=== PATIENT | male | born 1945 | race Caucasian/White ===

== ENCOUNTER 2016-11-07 20:45 | Emergency (ER) | payer MEDICARE, OTHER ==
[2016-11-07 20:55] VITALS: BP 157/76
--- NOTE | 2016-11-08 00:42 | UC ---
Michael Maradiaga Adam, scribed for Tahmina Arriaga DO on 11/07/16 at 2227 . Lower Extremity/Ankle HPI - HPI Summary HPI Summary: Pt is a 71 year old male presenting with concerns about a bruise on his LLE. He states that a heavy log landed on the leg about 1 week ago and he has since developed a large black bruise on his left thigh near his groin. The bruised area is not painful. The pt states that he rarely bruises which is why he is concerned. He also reports an abrasion in the area of the bruise. Pt denies CP, SOB, MORENO, rashes, N/V/D, abdominal pain, rashes, fever, chills, and any other symptoms. PMHx of HTN and A Fib (on Metoprolol). Surgical Hx of multiple back and knee operations. Former tobacco use. FMHx of HTN. - History of Current Complaint Chief Complaint: UCGeneralIllness Stated Complaint: BRUISE ON LEG Hx Obtained From: Patient Onset/Duration: Gradual Onset, Lasting Days, Still Present Severity Initially: Mild Severity Currently: Moderate Aggravating Factor(s): Nothing Alleviating Factor(s): Nothing Able to Bear Weight: Yes - Risk Factors DVT Risk Factors: Negative - Allergies/Home Medications Allergies/Adverse Reactions: Allergies Allergy/AdvReac Type Severity Reaction Status Date / Time Ibuprofen Allergy Intermediate Hives/Diff.Breathing/Itching, Verified 11/07/16 20:56 Weakness Home Medications: Home Medications Cyclobenzaprine TAB* [Flexeril TAB*] 10 mg PO BID PRN 11/07/16 [History Confirmed 11/07/16] Metoprolol Tartrate TAB* [Lopressor TAB*] 25 mg PO DAILY 11/07/16 [History Confirmed 11/07/16] traMADol TAB* [Ultram*] 50 mg PO Q6HR PRN 11/07/16 [History Confirmed 11/07/16] PMH/Surg Hx/FS Hx/Imm Hx Endocrine History Of: Denies: Diabetes, Thyroid Disease Cardiovascular History Of: Reports: Hypertension - ON MEDS, Atrial Fibrillation Denies: Pacemaker/ICD Comment Only: Cardiac Disorders - YES, A-FIB Respiratory History Of: Denies: COPD, Asthma GI/ History Of: Denies: Gastroesophageal Reflux, Renal Disease Neurological History Of: Denies: CVA, Dementia, Seizures - Surgical History Surgical History: Yes Surgery Procedure, Year, and Place: 1949 TONSILLECTOMY, [facility]. 1973 LEFT RETINAL DETATCHEMENT REPAIR, [facility]. 1979 RIGHT INGUINAL HERNIA REPAIR, [place]. 1997 BACK FUSION, [facility]. 1999 [place] [facility] [place] Surgery 2012 [facility]. 2003 LEFT [place] [facility] [place], [place]. 2010 DORSAL COLUMN STIMULATOR INSERTION,. 06/2012 LEFT KNEE TOTAL REPLACEMENT, [place]. RIGHT SHOULDER SURGERY REVISION 12/2013 - Family History Known Family History: Positive: Hypertension, Other - Negative malignant hyperthermia, negative anesthesia reaction - Social History Occupation: Retired Lives: With Family - Alcohol Use: None Substance Use Type: None Smoking Status (MU): Former Smoker Have You Smoked in the Last Year: No - Immunization History Most Recent Influenza Vaccination: not this year Review of Systems Constitutional: Negative Skin: Bruising - LLE, Other - Abrasion in LLE Eyes: Negative ENT: Negative Respiratory: Negative Cardiovascular: Negative Gastrointestinal: Negative Genitourinary: Negative Motor: Negative Neurovascular: Negative Musculoskeletal: Negative Neurological: Negative Psychological: Negative All Other Systems Reviewed And Are Negative: Yes Physical Exam Triage Information Reviewed: Yes Appearance: Well-Appearing, No Pain Distress, Well-Nourished Vital Signs: Initial Vital Signs Temp 97.9 F 11/07/16 20:50 Pulse 63 11/07/16 20:50 Resp 16 11/07/16 20:50 BP 157/76 11/07/16 20:50 Pulse Ox 97 11/07/16 20:50 Vital Signs Reviewed: Yes Eyes: Positive: Conjunctiva Clear. Negative: Discharge ENT: Positive: Hearing grossly normal. Negative: Muffled/hoarse voice Neck exam: Normal Neck: Positive: Supple Respiratory: Positive: Lungs clear, Normal breath sounds, No respiratory distress, No accessory muscle use Cardiovascular: Positive: RRR, No Murmur Musculoskeletal Exam: Normal Neurological: Positive: Alert, Muscle Tone Normal Psychological Exam: Normal Psychological: Positive: Age Appropriate Behavior Skin: Positive: Other - 10 cm evolving hematoma distal to mild abrasion to left thigh Lower Extremity Course/Dx - Differential Dx/Diagnosis Differential Diagnosis/HQI/PQRI: Cellulitis, Contusion Provider Diagnoses: Hematoma, abrasion Discharge - Discharge Plan Condition: Stable Disposition: HOME Patient Education Materials: Abrasion (ED), Hematoma (ED) Referrals: Olivia Olvera MD [Primary Care Provider] - If Needed The documentation as recorded by the Michael quiñones Adam accurately reflects the service I personally performed and the decisions made by me, Tahmina Arriaga DO.
== END 2016-11-07 22:54 | disposition home or self-care (01) ==
LOC: UCEAST 20:45
DX: S70.12XA Contusion of left thigh, initial encounter (principal); S70.312A Abrasion, left thigh, initial encounter; W20.8XXA Other cause of strike by thrown, projected or falling object, initial encounter; Y93.89 Activity, other specified; Y92.9 Unspecified place or not applicable; I10 Essential (primary) hypertension; I48.91 Unspecified atrial fibrillation; Z88.6 Allergy status to analgesic agent; Z96.652 Presence of left artificial knee joint; Z87.891 Personal history of nicotine dependence
CPT/HCPCS: 99211; G0463

== ENCOUNTER 2017-05-04 14:55 | Emergency (ER) | payer MEDICARE, OTHER ==
[2017-05-04] MEDS ORDERED: NS 0.9% 1000 ML* 1,000 ML IV ONE (15:41)
[2017-05-04 15:49] LABS: Hematocrit 45 % (42-52); Mean Corpuscular HGB Conc 33 g/dl (31-36); Mean Corpuscular Hemoglobin 31 pg (27-31); Mean Corpuscular Volume 92 fL (80-94); Mean Platelet Volume 10 um3 (7.4-10.4); Red Cell Distribution Width 15 % (10.5-15); White Blood Count 5.9 10^3/ul (3.5-10.8)
[2017-05-04 16:05] LABS: Albumin 4.2 g/dL (3.2-5.2); BUN/Creatinine Ratio 16.4 (8-20); C Reactive Protein 1.12 mg/L (< 5.00); Calcium 9.6 mg/dL (8.6-10.3); EGFR African American 75.5 (>60); EGFR Non-African American 58.7 (>60); Globulin 2.8 g/dL (2-4); Magnesium 2.2 mg/dL (1.9-2.7); Potassium 4.1 mmol/L (3.5-5.0); Total Bilirubin 0.6 mg/dL (0.2-1.0)
[2017-05-04 16:06] LABS: Troponin I 0.01 ng/mL (<0.04)
--- NOTE | 2017-05-04 16:22 | RAD ---
INDICATION: Weakness. Palpitations. COMPARISON: July 02, 2014 TECHNIQUE: An AP portable view obtained at 1545 hours is submitted. FINDINGS: Bones/Soft Tissues: There are no acute bony findings. Cardiomediastinal: The cardiomediastinal silhouette is normal. Lungs: There are no infiltrates. Pleura: There are no pleural effusions. Other: None IMPRESSION: NORMAL CHEST.
[2017-05-04 17:42] LABS: TSH (Thyroid Stimulating Horm) 2.01 mcIU/mL (0.34-5.60)
[2017-05-04 18:15] VITALS: BP 165/71
--- NOTE | 2017-05-04 18:41 | ED ---
Jocelyn Maradiaga Edward, scribed for Kavon Bills MD on 05/04/17 at 1511 . Palpitations / Dysrhythmia - HPI Summary HPI Summary: 71 y/o male presents to ED c/o sudden onset slow HR and skipped beats - missing two or three beats at a time, per pt. The patient first noticed the sx at 12:30 today after a nap. The palpitations and slow HR were accompanied with fatigue and weakness. Past medications reviewed on visit. Pt states no dose change in medication. Associated sx: chronic lightheadedness, dizziness and blurred vision. Denies pedal edema, ABD pain, CP, SOB. PMHx DM, CAD, HTN, pericarditis, no NV's. Pt had a stress test done abut a a year ago. - History of Current Complaint Chief Complaint: EDDysrhythmPalp Time Seen by Provider: 05/04/17 15:09 Hx Obtained From: Patient Onset/Duration: Sudden Onset, Lasting Hours - 12:30 today Character: Slow, Skipped Beats - Allergy/Home Medications Allergies/Adverse Reactions: Allergies Allergy/AdvReac Type Severity Reaction Status Date / Time Ibuprofen Allergy Intermediate Hives/Diff.Breathing/Itching, Verified 01/02/17 14:36 Weakness PMH/Surg Hx/FS Hx/Imm Hx Previously Healthy: No Endocrine/Hematology History: Reports: Hx Anticoagulant Therapy Denies: Hx Diabetes, Hx Thyroid Disease Cardiovascular History: Reports: Hx Coronary Artery Disease - CHOLESTEROL CONTROL WITH MEDS, Hx Hypercholesterolemia, Hx Hypertension - ON MEDS Denies: Hx Pacemaker/ICD Respiratory History: Denies: Hx Asthma, Hx Chronic Obstructive Pulmonary Disease (COPD) GI History: Reports: Hx Gastroesophageal Reflux Disease Denies: Other GI Disorders History: Denies: Hx Renal Disease Musculoskeletal History: Reports: Hx Arthritis, Hx Back Problems, Hx Tendonitis - LEFT SHOULDER, Other Musculoskeletal History - OSTEOARTHROSIS RIGHT SHOULDER, Sensory History: Reports: Hx Contacts or Glasses - READING GLASSES Denies: Hx Hearing Aid Opthamlomology History: Reports: Hx Contacts or Glasses - READING GLASSES Neurological History: Denies: Hx Dementia, Hx Seizures Psychiatric History: Denies: Hx Substance Abuse - Surgical History Surgery Procedure, Year, and Place: 1949 TONSILLECTOMY, [facility]. 1973 LEFT RETINAL DETATCHEMENT REPAIR, [facility]. 1979 RIGHT INGUINAL HERNIA REPAIR, [place]. 1997 BACK FUSION, [facility]. 1999 RIGHT SHOULDER SURGERY , [facility] [place]; Left Shoulder Surgery 2012 [facility]. 2003 LEFT KNEE ARTHROSCOPIC SURGERY, [facility] [place]. 2006 BACK SURGERY, [place]. 2010 DORSAL COLUMN STIMULATOR INSERTION,. 06/2012 LEFT KNEE TOTAL REPLACEMENT, [place]. RIGHT SHOULDER SURGERY REVISION 12/2013 Hx Anesthesia Reactions: No - DORSAL COLUMN STIMULATOR Infectious Disease History: Denies: Hx Hepatitis, Hx Human Immunodeficiency Virus (HIV), Hx of Known/ Suspected MRSA, Traveled Outside the [place] in Last 30 Days - Family History Known Family History: Positive: Hypertension, Other - Negative malignant hyperthermia, negative anesthesia reaction - Social History Alcohol Use: None Hx Substance Use: No Substance Use Type: Reports: None Hx Tobacco Use: Yes Smoking Status (MU): Former Smoker Have You Smoked in the Last Year: No Review of Systems Positive: Fatigue Eyes: Negative ENT: Negative Positive: Palpitations - Slow Respiratory: Negative Gastrointestinal: Negative Genitourinary: Negative Musculoskeletal: Negative Skin: Negative Neurological: Negative Psychological: Normal All Other Systems Reviewed And Are Negative: Yes Physical Exam Triage Information Reviewed: Yes Vital Signs On Initial Exam: Initial Vitals Temp Pulse Resp BP Pulse Ox 98.2 F 52 18 140/63 99 05/04/17 14:55 05/04/17 14:55 05/04/17 14:55 05/04/17 14:55 05/04/17 14:55 Vital Signs Reviewed: Yes Appearance: Positive: Well-Appearing, No Pain Distress Skin: Positive: Warm, Skin Color Reflects Adequate Perfusion, Dry Head/Face: Positive: Normal Head/Face Inspection Eyes: Positive: EOMI, JASIEL ENT: Positive: Normal ENT inspection Neck: Positive: Supple, Nontender Respiratory/Lung Sounds: Positive: Clear to Auscultation, Breath Sounds Present Cardiovascular: Positive: Other - Regular rhythm with occasional irregular beats Abdomen Description: Positive: Nontender, Soft Bowel Sounds: Positive: Present Musculoskeletal: Positive: Normal, Strength/ROM Intact Neurological: Positive: Normal, Sensory/Motor Intact, Alert, Oriented to Person Place, Time Psychiatric: Positive: Normal, Affect/Mood Appropriate Diagnostics - Vital Signs Vital Signs Temp Pulse Resp BP Pulse Ox 05/04/17 14:55 98.2 F 52 18 140/63 99 - Laboratory Lab Results: Lab Results 08/20/17 08/20/17 08/20/17 Range/Units 15:41 15:41 15:41 WBC 5.9 (3.5-10.8) 10^3/ul RBC 4.90 (4.0-5.4) 10^6/ul Hgb 15.0 (14.0-18.0) g/dl Hct 45 (42-52) % MCV 92 (80-94) fL MCH 31 (27-31) pg MCHC 33 (31-36) g/dl RDW 15 (10.5-15) % Plt Count 156 (150-450) 10^3/ul MPV 10 (7.4-10.4) um3 Neut % (Auto) 62.7 (38-83) % Lymph % (Auto) 22.2 L (25-47) % [place] % (Auto) 9.3 H (1-9) % Eos % (Auto) 2.7 (0-6) % Baso % (Auto) 3.1 H (0-2) % Absolute Neuts (auto) 3.7 (1.5-7.7) 10^3/ul Absolute Lymphs (auto) 1.3 (1.0-4.8) 10^3/ul Absolute Monos (auto) 0.5 (0-0.8) 10^3/ul Absolute Eos (auto) 0.2 (0-0.6) 10^3/ul Absolute Basos (auto) 0.2 (0-0.2) 10^3/ul Absolute Nucleated RBC 0 10^3/ul Nucleated RBC % 0 INR (Anticoag Therapy) 0.86 L (0.89-1.11) APTT 30.6 (26.0-36.3) seconds D-Dimer, Quantitative < 200 (Less Than 230) ng/mL Sodium 137 (133-145) mmol/L Potassium 4.1 (3.5-5.0) mmol/L Chloride 106 (101-111) mmol/L Carbon Dioxide 25 (22-32) mmol/L Anion Gap 6 (2-11) mmol/L BUN 20 (6-24) mg/dL Creatinine 1.22 H (0.67-1.17) mg/dL Est GFR ( Amer) 75.5 (>60) Est GFR (Non-Af Amer) 58.7 (>60) BUN/Creatinine Ratio 16.4 (8-20) Glucose 91 (70-100) mg/dL Lactic Acid (0.5-2.0) mmol/L Calcium 9.6 (8.6-10.3) mg/dL Magnesium 2.2 (1.9-2.7) mg/dL Total Bilirubin 0.60 (0.2-1.0) mg/dL AST 16 (13-39) U/L ALT 15 (7-52) U/L Alkaline Phosphatase 64 (34-104) U/L Total Creatine Kinase 49 (10-223) U/L CK-MB (CK-2) 2.6 (0.6-6.3) ng/mL Troponin I 0.01 (<0.04) ng/mL C-Reactive Protein 1.12 (< 5.00) mg/L B-Natriuretic Peptide ( - 100) pg/mL Total Protein 7.0 (6.4-8.9) g/dL Albumin 4.2 (3.2-5.2) g/dL Globulin 2.8 (2-4) g/dL Albumin/Globulin Ratio 1.5 (1-3) Lipase 41 (11.0-82.0) U/L TSH 2.01 (0.34-5.60) mcIU/mL 05/04/17 05/04/17 Range/Units 15:41 15:41 WBC (3.5-10.8) 10^3/ul RBC (4.0-5.4) 10^6/ul Hgb (14.0-18.0) g/dl Hct (42-52) % MCV (80-94) fL MCH (27-31) pg MCHC (31-36) g/dl RDW (10.5-15) % Plt Count (150-450) 10^3/ul MPV (7.4-10.4) um3 Neut % (Auto) (38-83) % Lymph % (Auto) (25-47) % [place] % (Auto) (1-9) % Eos % (Auto) (0-6) % Baso % (Auto) (0-2) % Absolute Neuts (auto) (1.5-7.7) 10^3/ul Absolute Lymphs (auto) (1.0-4.8) 10^3/ul Absolute Monos (auto) (0-0.8) 10^3/ul Absolute Eos (auto) (0-0.6) 10^3/ul Absolute Basos (auto) (0-0.2) 10^3/ul Absolute Nucleated RBC 10^3/ul Nucleated RBC % INR (Anticoag Therapy) (0.89-1.11) APTT (26.0-36.3) seconds D-Dimer, Quantitative (Less Than 230) ng/mL Sodium (133-145) mmol/L Potassium (3.5-5.0) mmol/L Chloride (101-111) mmol/L Carbon Dioxide (22-32) mmol/L Anion Gap (2-11) mmol/L BUN (6-24) mg/dL Creatinine (0.67-1.17) mg/dL Est GFR ( Amer) (>60) Est GFR (Non-Af Amer) (>60) BUN/Creatinine Ratio (8-20) Glucose (70-100) mg/dL Lactic Acid 0.9 (0.5-2.0) mmol/L Calcium (8.6-10.3) mg/dL Magnesium (1.9-2.7) mg/dL Total Bilirubin (0.2-1.0) mg/dL AST (13-39) U/L ALT (7-52) U/L Alkaline Phosphatase (34-104) U/L Total Creatine Kinase (10-223) U/L CK-MB (CK-2) (0.6-6.3) ng/mL Troponin I (<0.04) ng/mL C-Reactive Protein (< 5.00) mg/L B-Natriuretic Peptide 70 ( - 100) pg/mL Total Protein (6.4-8.9) g/dL Albumin (3.2-5.2) g/dL Globulin (2-4) g/dL Albumin/Globulin Ratio (1-3) Lipase (11.0-82.0) U/L TSH (0.34-5.60) mcIU/mL Result Diagrams: 05/04/17 15:41 05/04/17 15:41 Lab Statement: Any lab studies that have been ordered have been reviewed, and results considered in the medical decision making process. - Radiology CXR Xray Interpretation: No Acute Changes - Normal chest Radiology Interpretation Completed By: Radiologist - EKG 1 EKG Rhythm: Sinus Bradycardia - 69 bpm Ectopy: PVCs EKG Interpretation: Mobitz Type I 2 EKG Rhythm: Sinus Bradycardia - @ [address] Segment: Normal Ectopy: PVCs EKG Interpretation: 18:15 Re-Evaluation - Re-Evaluation 1 Re-Evaluation Time: 18:10 Comment: Reviewed CXR and EKG. Course/Dx - Course Course Of Treatment: DISCUSSED WITH DR PEOPLES. PATIENT FEELS WELL IN ED. HE AMBULATED AND FELT WELL. NO CHEST PAIN/SOB/LIGHTHEADEDNESS. HE WILL F/U WITH PMD TOMORROW AND CARDIOLOGY. HE UNDERSTAND TO RETURN TO ED IF WORSE. - Diagnoses Provider Diagnoses: Bradycardia, PVC (premature ventricular contraction) - Physician Notifications Discussed Care Of Patient With: Marlen Peoples Time Discussed With Above Provider: 15:46 Discharge - Discharge Plan Condition: Stable Disposition: HOME Patient Education Materials: Bradycardia (ED), Palpitations (ED) Referrals: Ledy Gallardo MD [Primary Care Provider] - Marlen Peoples MD [Medical Doctor] - [facility] [Provider Group] Additional Instructions: FOLLOW UP WITH YOUR PRIMARY CARE DOCTOR TOMORROW SCHEDULED AND CARDIOLOGY. RETURN TO THE EMERGENCY DEPARTMENT FOR ANY WORSENING OF YOUR CONDITION; CHEST PAIN, SHORTNESS OF BREATH, YOU FEEL LIKE PASSING OUT, YOU FEEL ILL OR QUESTIONS OR CONCERNS. The documentation as recorded by the Jocelyn quiñones Edward accurately reflects the service I personally performed and the decisions made by me, Kavon Bills MD.
== END 2017-05-04 20:53 | disposition home or self-care (01) ==
LOC: ED 14:55
DX: R00.2 Palpitations (principal); Z87.891 Personal history of nicotine dependence
CPT/HCPCS: 36415; 71010; 80053; 82550; 82553; 83605; 83690; 83735; 83880; 84443; 84484; 85025; 85379; 85610; 85730; 86140; 86618; 93005; 99284

== ENCOUNTER 2017-05-18 15:06 | Emergency (ER) | payer MEDICARE, OTHER ==
[2017-05-18 15:26] VITALS: BP 155/91
--- NOTE | 2017-05-18 16:13 | UC ---
INadine Emily, scribed for Carrillo Pisano MD on 05/18/17 at 1526 . General HPI - HPI Summary HPI Summary: This patient is a 71 year old M presenting to [facility] s/p fall 1230 today. He fell backwards from a truck. He states I am punchy and not thinking right. The patient rates the pain 6/10 in severity. Symptoms aggravated by nothing. Symptoms alleviated by nothing. Patient reports head trauma, and frontal headache (felt like my eyes popped out when I fell). Patient denies LOC, slurred speech, aphasia, extremity pain, weakness, N/V, biting tongue, urinary incontinency, and CP. PMHx includes DMII, A-Fib. Medications reviewed. Allergies reviewed. - History of Current Complaint Chief Complaint: UCHeadInjury Stated Complaint: FELL INJURE HEAD Time Seen by Provider: 05/18/17 15:17 Hx Obtained From: Patient Onset/Duration: Sudden Onset, Lasting Hours, Still Present Timing: Constant Onset Severity: Moderate Current Severity: Moderate Aggravating: Nothing Alleviating: Nothing Associated Signs & Symptoms: Positive: Other - head trauma, and frontal headache (felt like my eyes popped out when I fell). Patient denies LOC, slurred speech, aphasia, extremity pain, weakness, N/V, biting tongue, urinary incontinency, and CP. - Allergy/Home Medications Allergies/Adverse Reactions: Allergies Allergy/AdvReac Type Severity Reaction Status Date / Time Ibuprofen Allergy Intermediate Hives/Diff.Breathing/Itching, Verified 01/02/17 14:36 Weakness Home Medications: Home Medications Empagliflozin-Metformin HCl [Synjardy 5-500 mg] 1 tab PO 05/18/17 [History] PMH/Surg Hx/FS Hx/Imm Hx Endocrine History: Diabetes Cardiovascular History: Atrial Fibrillation Other History Of: Anticoagulant Therapy - Surgical History Surgical History: Yes Surgery Procedure, Year, and Place: 1950 TONSILLECTOMY, [facility]. 1973 LEFT RETINAL DETATCHEMENT REPAIR, [facility]. 1979 RIGHT INGUINAL HERNIA REPAIR, [place]. 1997 BACK FUSION, [facility]. 1999 [place] , [facility] [place] Surgery 2012 [facility]. 2003 LEFT KNEE ARTHROSCOPIC SURGERY, [facility] [place]. 2006 BACK SURGERY, [place]. 2010 DORSAL COLUMN STIMULATOR INSERTION,. 06/2012 LEFT KNEE TOTAL REPLACEMENT, [place]. RIGHT SHOULDER SURGERY REVISION 12/2013 - Family History Known Family History: Positive: Hypertension, Other - Negative malignant hyperthermia, negative anesthesia reaction - Social History Alcohol Use: None Substance Use Type: None Smoking Status (MU): Former Smoker Have You Smoked in the Last Year: No - Immunization History Most Recent Influenza Vaccination: not this year Review of Systems Cardiovascular: Other - Negative CP Gastrointestinal: Other - Negative N/V Genitourinary: Other - Negative urinary incontinency Musculoskeletal: Other: - Fell, head trauma, Neurological: Headache, Other - Negative denies LOC, slurred speech, aphasia, extremity pain, weakness, biting tongue. All Other Systems Reviewed And Are Negative: Yes Physical Exam Triage Information Reviewed: Yes Vital Signs: Initial Vital Signs Temp 98.2 F 05/18/17 15:21 Pulse 73 05/18/17 15:21 Resp 18 05/18/17 15:21 BP 155/91 05/18/17 15:21 Pulse Ox 100 05/18/17 15:21 Vital Signs Reviewed: Yes - Additional Comments The patient is well-nourished in no acute distress and in no acute pain. The skin is warm and dry and skin color reflects adequate perfusion. HEENT: The head is normocephalic and atraumatic. The pupils are equal and reactive. EOMI. The conjunctivae are clear and without drainage. Nares are patent and without drainage. Mouth reveals moist mucous membranes and the throat is without erythema and exudate. The external ears are intact. The ear canals are patent and without drainage. The tympanic membranes are intact. No hemo tympanum. No facial trauma evidence Neck is supple with full range of motion and non-tender. There are no carotid bruits. There is no neck vein distension. Respiratory: Chest is non-tender. Lungs are clear to auscultation and breath sounds are symmetrical and equal. Cardiovascular: Heart is bradycardic. There is no murmur or rub auscultated. There is no peripheral edema and pulses are symmetrical and equal. Abdomen: The abdomen is soft and non-tender. There are normal bowel sounds heard in all four quadrants and there is no organomegaly palpated. Musculoskeletal: There is no back pain noted. Extremities are non-tender with full range of motion. There is good capillary refill. There is no peripheral edema or calf tenderness elicited. No reproducible hip, neck, t spine, and l spine tenderness. Neurological: Patient is alert and oriented to person, place and time. The patient has symmetrical motor strength in all four extremities. Cranial nerves are grossly intact. Deep tendon reflexes are symmetrical and equal in all four extremities. No focal weakness noted. Speech is appropriate. No facial droop. Psychiatric: The patient has an appropriate affect and does not exhibit any anxiety or depression. Diagnostics - EKG Cardiac Rate: Bradycardia - BPM 58 Cardiac Rhythm: Sinus: Normal - 0309. PVCs, normal axis, no STEMI. Course/Dx - Course Course Of Treatment: This patient is a 71 year old M presenting to [facility] s/p fall 1230 today. He fell backwards from a truck. He states I am punchy and not thinking right. The patient rates the pain 6/10 in severity. Symptoms aggravated by nothing. Symptoms alleviated by nothing. Patient reports head trauma, and frontal headache (felt like my eyes popped out when I fell). Patient denies LOC, slurred speech, aphasia, extremity pain, weakness, N/V, biting tongue, urinary incontinency, and CP. PMHx includes DMII, A-Fib. Medications reviewed. Allergies reviewed. EKG reveals sinus bradycardia and PVCs. Patient will be discharged with instructions to present immediately to the emergency department. The patient is agreeable with this plan. - Differential Dx - Multi-Symptom Differential Diagnoses: Closed Cranial Trauma Provider Diagnoses: HEAD TRAUMA. Discharge - Discharge Plan Condition: Stable Disposition: [facility] Discharge Disposition Comment: [facility] Patient Education Materials: Head Injury (ED) Referrals: Ledy Gallardo MD [Primary Care Provider] - Additional Instructions: GO IMMEDIATELY TO THE EMERGENCY DEPARTMENT WITHOUT STOPPING FOR A BRAIN CT. FOLLOW UP WITH YOUR PRIMARY CARE PROVIDER WITHIN ONE WEEK FOR HIGH BLOOD PRESSURE NOTED TODAY. The documentation as recorded by the Nadine quiñones Emily accurately reflects the service I personally performed and the decisions made by me, Carrillo Pisano MD.
== END 2017-05-18 15:40 | disposition short-term general hospital (02) ==
LOC: UCEAST 15:06
DX: S09.90XA Unspecified injury of head, initial encounter (principal); V89.9XXA Person injured in unspecified vehicle accident, initial encounter; Y93.9 Activity, unspecified; Y92.9 Unspecified place or not applicable; R51 Headache; Z88.6 Allergy status to analgesic agent; E11.9 Type 2 diabetes mellitus without complications; Z79.84 Long term (current) use of oral hypoglycemic drugs; I48.91 Unspecified atrial fibrillation; Z79.01 Long term (current) use of anticoagulants; Z96.652 Presence of left artificial knee joint; Z87.891 Personal history of nicotine dependence
CPT/HCPCS: 93005; 99211; G0463

== ENCOUNTER 2017-05-18 15:58 | Emergency (ER) | payer MEDICARE, OTHER ==
[2017-05-18 16:22] VITALS: BP 167/81
--- NOTE | 2017-05-18 16:45 | RAD ---
INDICATION: Head injury. COMPARISON: Comparison is made with a prior CT of the brain from January 28, 2007. TECHNIQUE: Contiguous axial sections of the brain were obtained from the skull base to the vertex without contrast. FINDINGS: The ventricles, cisterns and sulci are enlarged consistent with diffuse atrophy. No significant focal abnormality or mass effect is seen. There is no evidence for hemorrhage. No significant focal osseous abnormality is seen. The visualized portion of the paranasal sinuses and mastoid air cells appear clear. IMPRESSION: NO EVIDENCE FOR ACUTE INTRACRANIAL ABNORMALITY.
--- NOTE | 2017-05-18 17:06 | ED ---
Jocelyn Maradiaga Edward, scribed for LydiakayCarineJaime on 05/18/17 at 1623 . Head Injury - HPI Summary HPI Summary: 71 y/o male presents to the ED sent from [facility] c/o MORENO s/p head injury today at 12 :30. The MORENO is rated 4/10 in severity, not aggravated or alleviated by anything. The MORENO is located behind his bilateral eyes, per triage note. Pt fell off his truck and hit his posterior head. Associated sx: chronic lower back pain. Denies neck pain, CP, SOB. No LOC. - History Of Current Complaint Chief Complaint: EDHeadInjury Stated Complaint: HEAD INJURY/NEEDS CT-SENT FROM Hx Obtained From: Patient Mechanism Of Injury: Fall From Height Of: - Truck Onset/Duration: Started Hours Ago Severity Initially: Moderate Pain Intensity: 4 Pain Scale Used: 0-10 Numeric Location: Discrete At: - Posterior head Associated Signs And Symptoms: Headache - Allergies/Home Medications Allergies/Adverse Reactions: Allergies Allergy/AdvReac Type Severity Reaction Status Date / Time Ibuprofen Allergy Intermediate Hives/Diff.Breathing/Itching, Verified 01/02/17 14:36 Weakness PMH/Surg Hx/FS Hx/Imm Hx Previously Healthy: No Endocrine/Hematology History: Reports: Hx Anticoagulant Therapy, Hx Diabetes - type 2 Denies: Hx Thyroid Disease Cardiovascular History: Reports: Hx Coronary Artery Disease - CHOLESTEROL CONTROL WITH MEDS, Hx Hypercholesterolemia, Hx Hypertension - ON MEDS Denies: Hx Pacemaker/ICD Respiratory History: Denies: Hx Asthma, Hx Chronic Obstructive Pulmonary Disease (COPD) GI History: Reports: Hx Gastroesophageal Reflux Disease Denies: Other GI Disorders History: Denies: Hx Renal Disease Musculoskeletal History: Reports: Hx Arthritis, Hx Back Problems, Hx Tendonitis - LEFT SHOULDER, Other Musculoskeletal History - OSTEOARTHROSIS RIGHT SHOULDER, Sensory History: Reports: Hx Contacts or Glasses - READING GLASSES Denies: Hx Hearing Aid Opthamlomology History: Reports: Hx Contacts or Glasses - READING GLASSES Neurological History: Denies: Hx Dementia, Hx Seizures Psychiatric History: Denies: Hx Substance Abuse - Surgical History Surgery Procedure, Year, and Place: 1949 TONSILLECTOMY, [facility]. 1973 LEFT RETINAL DETATCHEMENT REPAIR, [facility]. 1979 RIGHT INGUINAL HERNIA REPAIR, [place]. 1997 BACK FUSION, [facility]. 1999 RIGHT SHOULDER SURGERY , [facility] [place]; Left Shoulder Surgery 2012 [facility]. 2003 LEFT KNEE ARTHROSCOPIC SURGERY, [facility] [place]. 2006 BACK SURGERY, [place]. 2010 DORSAL COLUMN STIMULATOR INSERTION,. 06/2012 LEFT KNEE TOTAL REPLACEMENT, [place]. RIGHT SHOULDER SURGERY REVISION 12/2013 Hx Anesthesia Reactions: No - DORSAL COLUMN STIMULATOR Infectious Disease History: No Infectious Disease History: Denies: Hx Hepatitis, Hx Human Immunodeficiency Virus (HIV), Hx of Known/ Suspected MRSA, Traveled Outside the [place] in Last 30 Days - Family History Known Family History: Positive: Hypertension, Other - Negative malignant hyperthermia, negative anesthesia reaction - Social History Alcohol Use: None Hx Substance Use: No Substance Use Type: Reports: None Hx Tobacco Use: Yes Smoking Status (MU): Former Smoker Have You Smoked in the Last Year: No Review of Systems Constitutional: Negative Eyes: Negative ENT: Negative Cardiovascular: Negative Respiratory: Negative Gastrointestinal: Negative Genitourinary: Negative Musculoskeletal: Negative Skin: Negative Positive: Headache Psychological: Normal All Other Systems Reviewed And Are Negative: Yes Physical Exam Triage Information Reviewed: Yes Vital Signs On Initial Exam: Initial Vitals Temp Pulse Resp BP Pulse Ox 97.2 F 57 16 169/71 100 05/18/17 16:05 05/18/17 16:05 05/18/17 16:05 05/18/17 16:05 05/18/17 16:05 Vital Signs Reviewed: Yes Appearance: Positive: Well-Appearing, No Pain Distress Skin: Positive: Warm, Skin Color Reflects Adequate Perfusion, Dry Head/Face: Positive: Normal Head/Face Inspection Eyes: Positive: EOMI, JASIEL ENT: Positive: Normal ENT inspection Neck: Positive: Supple, Nontender Respiratory/Lung Sounds: Positive: Clear to Auscultation, Breath Sounds Present Cardiovascular: Positive: RRR, Pulses are Symmetrical in both Upper and Lower Extremities Abdomen Description: Positive: Nontender, Soft Bowel Sounds: Positive: Present Musculoskeletal: Positive: Normal, Strength/ROM Intact Neurological: Positive: Normal, Sensory/Motor Intact, Alert, Oriented to Person Place, Time Diagnostics - Vital Signs Vital Signs Temp Pulse Resp BP Pulse Ox 05/18/17 16:05 97.2 F 57 16 169/71 100 - Laboratory Lab Statement: Any lab studies that have been ordered have been reviewed, and results considered in the medical decision making process. - CT BRAIN CT CT Interpretation: No Acute Changes - NO EVIDENCE FOR ACUTE INTRACRANIAL ABNORMALITY. ED PHYSICIAN AGREEABLE CT Interpretation Completed By: Radiologist - EKG 1 EKG Interpretation: 16:10 - SINUS RHYTHM @ 56 BPM with PVCs Re-Evaluation - Re-Evaluation 1 Re-Evaluation Time: 17:03 Comment: Discussed CT results Head Injury Course/Dx Assessment/Plan: 71 y/o male presents to the ED sent from [facility] c/o MORENO s/p head injury today at 12:30. The MORENO is rated 4/10 in severity, not aggravated or alleviated by anything. The MORENO is located behind his bilateral eyes, per triage note. Pt fell off his truck and hit his posterior head. Associated sx: chronic lower back pain. Denies neck pain, CP, SOB. No LOC. EKG 16:10 - SINUS RHYTHM @ [address] PVCs[address]RA[address] SHOWS NO EVIDENCE FOR ACUTE INTRACRANIAL ABNORMALITY. Pt will be d/c home. - Diagnoses Provider Diagnoses: Head injury Discharge - Discharge Plan Condition: Stable Disposition: HOME Patient Education Materials: Head Injury (ED) Referrals: Ledy Gallardo MD [Primary Care Provider] - 3 Days (PLEASE F/U IN 2-3 DAYS) The documentation as recorded by the Jocelyn quiñones Edward accurately reflects the service I personally performed and the decisions made by , Jaime Logan.
== END 2017-05-18 17:20 | disposition home or self-care (01) ==
LOC: ED 15:58
DX: S09.90XA Unspecified injury of head, initial encounter (principal); W17.89XA Other fall from one level to another, initial encounter; Y92.9 Unspecified place or not applicable; M54.5 Low back pain; G89.29 Other chronic pain; E11.9 Type 2 diabetes mellitus without complications; Z79.01 Long term (current) use of anticoagulants; I25.10 Atherosclerotic heart disease of native coronary artery without angina pectoris; E78.00 Pure hypercholesterolemia, unspecified; K21.9 Gastro-esophageal reflux disease without esophagitis; Z87.891 Personal history of nicotine dependence; M19.011 Primary osteoarthritis, right shoulder
CPT/HCPCS: 70450; 93005; 99282

== ENCOUNTER 2017-12-07 20:03 | Emergency (ER) | payer MEDICARE, OTHER ==
[2017-12-07 20:15] VITALS: BP 169/80
[2017-12-07] MEDS ORDERED: Tetracaine 0.5% OPTH.SOL 4 ML* 1 DROP BTL RIGHT EYE ONE (20:17)
[2017-12-07] MEDS ORDERED: Fluorescein Sod TOPICAL 0.6* 0.6 MG TEST OPHTHALMIC ONE (20:20)
[2017-12-07] MEDS ORDERED: Tetracaine 0.5% OPTH.SOL 4 ML* 1 DROP BTL ONE (20:20)
[2017-12-07] MEDS: Fluorescein Sod TOPICAL 0.6* 0.6 MG TEST OPHTHALMIC ONE ×2 (20:33→20:36)
[2017-12-07] MEDS ORDERED: Erythromycin OPTH OINT* APPLIC OINT RIGHT EYE ONE (20:37)
--- NOTE | 2017-12-07 20:47 | UC ---
Eye Complaint HPI - HPI Summary HPI Summary: 72 yo male with prior retinal detachment of the L eye who presents with c/o a R eye FB. He was cutting wood earlier today when he felt something enter his R eye. It has been painful and tearing since. No vision changes. He tried to flush it at home without relief. - History of Current Complaint Chief Complaint: UCEye Stated Complaint: EYE INJURY Pain Intensity: 6 - Allergies/Home Medications Allergies/Adverse Reactions: Allergies Allergy/AdvReac Type Severity Reaction Status Date / Time ibuprofen Allergy Severe Hives Verified 12/07/17 20:19 PMH/Surg Hx/FS Hx/Imm Hx Previously Healthy: No - prior retinal detachment Other History Of: Anticoagulant Therapy - Surgical History Surgical History: Yes Surgery Procedure, Year, and Place: 1949 TONSILLECTOMY, [facility]. 1973 LEFT RETINAL DETATCHEMENT REPAIR, [facility]. 1979 RIGHT INGUINAL HERNIA REPAIR, [place]. 1997 BACK FUSION, [facility]. 1999 RIGHT SHOULDER SURGERY , [facility] [place]; Left Shoulder Surgery 2012 [facility]. 2003 LEFT KNEE ARTHROSCOPIC SURGERY, [facility] [place]. 2006 BACK SURGERY, [place]. 2010 DORSAL COLUMN STIMULATOR INSERTION,. 06/2012 LEFT KNEE TOTAL REPLACEMENT, [place]. RIGHT SHOULDER SURGERY REVISION 12/2013 - Family History Known Family History: Positive: Hypertension, Other - Negative malignant hyperthermia, negative anesthesia reaction - Social History Alcohol Use: None Substance Use Type: None Smoking Status (MU): Former Smoker Have You Smoked in the Last Year: No - Immunization History Most Recent Influenza Vaccination: not this year Review of Systems Constitutional: Negative Skin: Negative Eyes: Other - FB ENT: Negative Respiratory: Negative Cardiovascular: Negative Gastrointestinal: Negative Genitourinary: Negative Motor: Negative Neurovascular: Negative Musculoskeletal: Negative Neurological: Negative Psychological: Negative Is Patient Immunocompromised?: No All Other Systems Reviewed And Are Negative: Yes Physical Exam Triage Information Reviewed: Yes Appearance: Well-Appearing Vital Signs: Initial Vital Signs Temp 98.5 F 12/07/17 20:10 Pulse 59 12/07/17 20:10 Resp 16 12/07/17 20:10 BP 169/80 12/07/17 20:10 Pulse Ox 97 12/07/17 20:10 Vital Signs Reviewed: Yes Eyes: Positive: Other: - clear drainage from R eye. FB located just medial to the pupil. Fluorescein neg for other abrasion or FB. ENT Exam: Normal Dental Exam: Normal Neck exam: Normal Respiratory Exam: Normal Respiratory: Positive: Lungs clear Cardiovascular Exam: Normal Cardiovascular: Positive: RRR Abdominal Exam: Normal Musculoskeletal Exam: Normal Neurological Exam: Normal Psychological Exam: Normal Skin Exam: Normal Procedures - Eye Procedure Alcaine Drops Administered: Yes Eye Irrigated w/ Saline (ccs): 200 Antibiotic Ointment/Drps Admin: right eye Eye Complaint Course/Dx - Course Course Of Treatment: Foreign body successfully removed from the eye with irrigation. Flourescein stain completed, no additional abrasion or FB identified. Erythromycin ointment administered - Differential Dx/Diagnosis Differential Diagnosis/HQI/PQRI: Foreign Body, Penetrating Injury, Uveitis Provider Diagnoses: 1. R orbit FB Discharge - Sign-Out/Discharge Documenting (check all that apply): Discharge - Discharge Plan Condition: Stable Disposition: HOME Patient Education Materials: Eye Foreign Body (ED) Referrals: Ledy Gallardo MD [Primary Care Provider] - If Needed Additional Instructions: Instructions: 1. Use eye ointment three times daily for 7 days, or 2-3 days after pain in the eye subsides - Billing Disposition and Condition Condition: STABLE Disposition: HOME
== END 2017-12-07 20:50 | disposition home or self-care (01) ==
LOC: UCEAST 20:03
DX: T15.81XA Foreign body in other and multiple parts of external eye, right eye, initial encounter (principal); X58.XXXA Exposure to other specified factors, initial encounter; Z88.6 Allergy status to analgesic agent; Z87.891 Personal history of nicotine dependence
CPT/HCPCS: 99212; A9270-GY; G0463

== ENCOUNTER 2018-11-08 18:05 | Emergency (ER) | payer MEDICARE, OTHER ==
[2018-11-08] MEDS ORDERED: NS 0.9% 1000 ML** 1,000 ML IV ONE (18:14)
[2018-11-08 18:22] LABS: ABS Basophils 0.1 10^3/ul (0-0.2); ABS Eosinophils 0.4 10^3/ul (0-0.6); ABS Lymphocytes 1.9 10^3/ul (1.0-4.8); ABS Monocytes 0.7 10^3/ul (0-0.8); ABS Neutrophils 3.5 10^3/ul (1.5-7.7); ABS Nucleated RBC 0 10^3/ul; Eosinophil % 6.1 %; Hematocrit 49 % (42-52); Hemoglobin 16.6 g/dl (14.0-18.0); Lymphocyte % 28.9 %; Mean Corpuscular HGB Conc 34 g/dl (31-36); Mean Corpuscular Hemoglobin 32 pg (27-31); Mean Corpuscular Volume 93 fL (80-94); Mean Platelet Volume 9.5 fL (7.4-10.4); Nucleated Red Blood Cells % 0.1; Platelet Count 217 10^3/ul (150-450); Red Blood Count 5.21 10^6/ul (4.00-5.40); Red Cell Distribution Width 14 % (10.5-15); White Blood Count 6.5 10^3/ul (3.5-10.8)
--- NOTE | 2018-11-08 18:24 | ED ---
Neurological HPI - HPI Summary HPI Summary: This patient is a 73 year old M presenting to [facility] with a chief complaint of feels like my heart is empty with unsteady gait and dizziness beginning around 1630 today. Difficulty ambulating is new today however the empty heart sensation has occurred multiple times in the past year but is significantly worse today. Patient denies lightheadedness. Additionally denies blood thinner use. PMHx of HTN, NIDDM, and a-fib. Denies history of TIA/CVA. - History of Current Complaint Stated Complaint: GENERAL ILLNESS Hx Obtained From: Patient Onset/Duration: Sudden Onset, Started hours ago Timing: Constant Pain Intensity: 0 Pain Scale Used: 0-10 Numeric Character: Other: - impaired gait Associated Signs and Symptoms: Positive: Unsteady Gait, Palpitations - Allergy/Home Medications Allergies/Adverse Reactions: Allergies Allergy/AdvReac Type Severity Reaction Status Date / Time ibuprofen Allergy Severe Hives Verified 11/08/18 18:29 Home Medications: Home Medications Aspirin 81 mg CHEW TAB* [Aspirin Low Dose TAB*] 81 mg PO DAILY 11/08/18 [ History Confirmed 11/08/18] PMH/Surg Hx/FS Hx/Imm Hx Endocrine/Hematology History: Reports: Hx Anticoagulant Therapy, Hx Diabetes - type 2 Denies: Hx Thyroid Disease Cardiovascular History: Reports: Hx Coronary Artery Disease - CHOLESTEROL CONTROL WITH MEDS, Hx Hypercholesterolemia, Hx Hypertension - ON MEDS Denies: Hx Pacemaker/ICD Respiratory History: Denies: Hx Asthma, Hx Chronic Obstructive Pulmonary Disease (COPD) GI History: Reports: Hx Gastroesophageal Reflux Disease Denies: Other GI Disorders History: Denies: Hx Renal Disease Musculoskeletal History: Reports: Hx Arthritis, Hx Back Problems, Hx Tendonitis - LEFT SHOULDER, Other Musculoskeletal History - OSTEOARTHROSIS RIGHT SHOULDER, Sensory History: Reports: Hx Contacts or Glasses - READING GLASSES Denies: Hx Hearing Aid Opthamlomology History: Reports: Hx Contacts or Glasses - READING GLASSES Neurological History: Denies: Hx Dementia, Hx Seizures Psychiatric History: Denies: Hx Substance Abuse - Surgical History Surgery Procedure, Year, and Place: [address], [facility]. 1973 LEFT RETINAL DETATCHEMENT REPAIR, [facility]. 1979 RIGHT INGUINAL HERNIA REPAIR, [place]. 1997 BACK FUSION, [facility]. 1999 RIGHT SHOULDER SURGERY , [facility] [place]; Left Shoulder Surgery 2012 [facility]. 2004 LEFT KNEE ARTHROSCOPIC SURGERY, [facility] [place]. 2007 BACK SURGERY, [place]. 2010 DORSAL COLUMN STIMULATOR INSERTION,. 06/2012 LEFT KNEE TOTAL REPLACEMENT, [place]. RIGHT SHOULDER SURGERY REVISION 12/2013 Hx Anesthesia Reactions: No - DORSAL COLUMN STIMULATOR Infectious Disease History: No Infectious Disease History: Denies: Hx Hepatitis, Hx Human Immunodeficiency Virus (HIV), Hx of Known/ Suspected MRSA, Traveled Outside the US in Last 30 Days - Family History Known Family History: Positive: Hypertension, Other - Negative malignant hyperthermia, negative anesthesia reaction - Social History Alcohol Use: None Hx Substance Use: No Substance Use Type: Reports: None Hx Tobacco Use: Yes Smoking Status (MU): Former Smoker Have You Smoked in the Last Year: No Review of Systems Positive: Palpitations Neurological: Other - unsteady gait All Other Systems Reviewed And Are Negative: Yes Physical Exam - Summary Physical Exam Summary: Appearance: Well appearing, no pain distress Skin: warm, dry, reflects adequate perfusion Head/face: normal 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 ENT: normal Neck: supple, non-tender Respiratory: CTA, breath sounds present Cardiovascular: Regularly irreugular, pulses symmetrical Abdomen: non-tender, soft Musculoskeletal: normal, strength/ROM intact Neuro:, sensory motor intact, A&Ox3, no focal deficits, NIH score 0, GCS 15 Triage Information Reviewed: Yes Vital Signs On Initial Exam: Initial Vitals Temp Pulse Resp BP Pulse Ox 98.7 F 65 19 195/90 99 11/08/18 18:11 11/08/18 18:11 11/08/18 18:11 11/08/18 18:11 11/08/18 18:11 Vital Signs Reviewed: Yes - Annelise Coma Scale Best Eye Response: 4 - Spontaneous Best Motor Response: 6 - Obeys Commands Best Verbal Response: 5 - Oriented Coma Scale Total: 15 Diagnostics - Vital Signs Vital Signs Temp Pulse Resp BP Pulse Ox 11/08/18 18:11 98.7 F 65 19 195/90 99 - Laboratory Result Diagrams: 11/08/18 18:12 11/08/18 18:12 Lab Statement: Any lab studies that have been ordered have been reviewed, and results considered in the medical decision making process. - Radiology CXR Radiology Interpretation Completed By: ED Physician - Negative for acute disease. - CT Brain CT CT Interpretation Completed By: Radiologist Summary of CT Findings: 1. No intracranial bleed, suspicious mass, or mass effect. Ventricles appear. unremarkable. 2. There is low attenuation change in the white matter most consistent with. chronic age related small vessel ischemic change. No acute territorial. infarction is seen. These can be initially occult on head CT. 3. ASPECTS score 10. ED Physician has reviewed this report. Head/Neck CTA CT Interpretation Completed By: Radiologist Summary of CT Findings: 1. There is irregular and noncalcified thrombus at the origin of the right. internal carotid artery extending for 1.6 cm length. There are small associated. ulcerations anteriorly and posteriorly. There is a short segment severe 70-94%. stenosis just past the origin of the vessel without occlusion. 2. Limited calcific plaque at the origin of the left internal carotid artery. extending for 10 mm length with shallow ulceration posteriorly. Less than 50%. stenosis. 3. 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 ED Physician has reviewed this report. - EKG 4071 Cardiac Rate: Bradycardia - 55 BPM EKG Rhythm: Sinus Rhythm Summary of EKG Findings: Sinus rhythm with Trigeminy. NIH Scale - NIH Scale Level of Consciousness: Alert/Keenly Responsive Ask Patient the Month and His/Her Age: Both Correct Ask Pt to Open/Close Eyes and [employer]/Release Non-Paretic Hand: Both Correctly Best Gaze (Only Horizontal Eye Movement): Normal Visual Field Testing: No Visual Loss Facial Paresis-Pt to Smile & Close Eyes or Grimace Symmetry: Normal/Symmetrical Motor Function - Right Arm: No Drift-Holds 10 Seconds Motor Function - Left Arm: No Drift-Holds 10 Seconds Motor Function - Right Leg: No Drift-Holds 10 Seconds Motor Function - Left Leg: No Drift-Holds 10 Seconds Limb Ataxia-Must be out of Proportion to Weakness Present: Absent Sensory (Use Pinprick to Test Arms/Legs/Trunk/Face): Normal Best Language (Describe Picture, Name Items): No Aphasia Dysarthria (Read Several Words): Normal Extinction and Inattention: No Abnormality Total Score: 0 Course/Dx - Course Course Of Treatment: 73 year old M presenting to [facility] with a chief complaint of feels like my heart is empty with unsteady gait beginning around 1630 today. Difficulty ambulating is new today however the empty heart sensation has occurred multiple times in the past year but is significantly worse today. Additionally denies blood thinner use. PMHx of HTN, NIDDM, and a-fib. Denies history of TIA/CVA. Upon evaluation at 1810 patient has NIH score of 0. Toribio rodríguez called at 181. Brain CT completed at 181 and results are read at 1824. Bloodwork is obtained. Patient given 1000mls of IVF. A Brain CT reveals no acute infarct. At 1840, Dr. Giordano, neurology at [facility], states he is not a canidate for tpa. He addtionally recommends a Head/neck CTA. Resutls of Head/Neck CTA discussed with Dr. Giordano, at 20:34, he recommends transfer. Head/Neck CTA reveals, " 1. There is irregular and noncalcified thrombus at the origin of the right. internal carotid artery extending for 1.6 cm length. There are small associated. ulcerations anteriorly and posteriorly. There is a short segment severe 70-94%. stenosis just past the origin of the vessel without occlusion. 2. Limited calcific plaque at the origin of the left internal carotid artery. extending for 10 mm length with shallow ulceration posteriorly. Less than 50%. stenosis. 3. 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 " As per radiologist. d/w dr [facility] recommended to transfer to [facility] for further evaluation. Patient will be transferred to [place] in [place]. - Differential Dx Differential Diagnoses Neuro: Positive: Cerebrovascular Accident, Coronary Artery Disease, Dysrhythmia, Intracranial Bleed, Transient Ischemic Attack - Diagnoses Provider Diagnoses: Dizziness, TIA (transient ischemic attack) During the Visit The Following Alert/Code Occurred: Toribio Rodríguez - at 181 - Critical Care Time Critical Care Time: 30-74 min - 60 min Discharge - Sign-Out/Discharge Documenting (check all that apply): Patient Departure - transfer - Discharge Plan Condition: Stable Disposition: TRANS HIGHER LVL OF CARE FAC Referrals: Ledy Gallardo MD [Primary Care Provider] - - Billing Disposition and Condition Condition: STABLE Disposition: Trans Higher Lvl of Care Fac - Attestation Statements Document Initiated by Scribe: Yes Documenting Scribe: Sun Rivas Provider For Whom Scribe is Documenting (Include Credential): Jaime Logan MD Scribe Attestation: Sun Maradiaga, scribed for Jaime Logan MD on 11/08/18 at 2100. Scribe Documentation Reviewed: Yes Provider Attestation: The documentation as recorded by the aliceibeSun accurately reflects the service I personally performed and the decisions made by me, Jaime Logan MD Status of Scribe Document: Viewed
[2018-11-08 18:38] LABS: Activated Partial Thrombo Time 33.8 seconds (26.0-36.3); INR 0.86 (0.77-1.02)
[2018-11-08 18:40] LABS: Albumin 4.6 g/dL (3.2-5.2); Albumin/Globulin Ratio 1.6 (1-3); BUN/Creatinine Ratio 21.2 (8-20); Calcium 9.5 mg/dL (8.6-10.3); EGFR African American 73.4 (>60); EGFR Non-African American 60.7 (>60); Globulin 2.8 g/dL (2-4); HDL Cholesterol 30.6 mg/dL; Total Bilirubin 0.5 mg/dL (0.2-1.0); Total Protein 7.4 g/dL (6.4-8.9)
[2018-11-08] MEDS ORDERED: Iodixanol* (CONTRAST) 320 MG/ML 100 ML SDV IV ONE (18:54)
[2018-11-08 21:51] VITALS: BP 191/100
== END 2018-11-08 21:50 | disposition short-term general hospital (02) ==
LOC: ED 18:05
DX: R42 Dizziness and giddiness (principal); G45.9 Transient cerebral ischemic attack, unspecified; R26.81 Unsteadiness on feet; R00.2 Palpitations; E78.00 Pure hypercholesterolemia, unspecified; I10 Essential (primary) hypertension; Z79.82 Long term (current) use of aspirin; Z96.652 Presence of left artificial knee joint; Z88.6 Allergy status to analgesic agent; Z87.891 Personal history of nicotine dependence
CPT/HCPCS: 36415; 70450; 70496; 70498; 71045; 80053; 80061; 83605; 84484; 85025; 85610; 85730; 86850; 86900; 86901; 93005; 96360; 99285; Q9967

== ENCOUNTER 2018-12-04 20:57 | Emergency (ER) | payer MEDICARE, OTHER ==
[2018-12-04] MEDS ORDERED: NS 0.9% 1000 ML** 1,000 ML IV ONE (21:36)
[2018-12-04 21:59] LABS: ABS Basophils 0.1 10^3/ul (0-0.2); ABS Eosinophils 0.2 10^3/ul (0-0.6); ABS Lymphocytes 1.7 10^3/ul (1.0-4.8); ABS Monocytes 0.7 10^3/ul (0-0.8); ABS Nucleated RBC 0 10^3/ul; Eosinophil % 2.9 %; Hematocrit 44 % (36-46); Lymphocyte % 25.8 %; Mean Corpuscular HGB Conc 34 g/dL (31-36); Mean Corpuscular Hemoglobin 31 pg (27-31); Mean Corpuscular Volume 93 fL (80-94); Mean Platelet Volume 9.7 fL (7.4-10.4); Nucleated Red Blood Cells % 0.1; Platelet Count 171 10^3/uL (150-450); Red Blood Count 4.78 10^6 /uL (4.18-5.48); Red Cell Distribution Width 14 % (10.5-15); White Blood Count 6.7 10^3/uL (3.5-10.8)
[2018-12-04 22:04] LABS: INR 0.92 (0.77-1.02)
[2018-12-04 22:14] LABS: ALT 21 U/L (7-52); AST 21 U/L (13-39); Albumin 4.3 g/dL (3.2-5.2); Albumin/Globulin Ratio 1.7 (1-3); Alkaline Phosphatase 72 U/L (34-104); Anion Gap 6 mmol/L (2-11); BUN/Creatinine Ratio 19.8 (8-20); Blood Urea Nitrogen 23 mg/dL (6-24); C Reactive Protein < 1.00 mg/L (<8.01); CO2 Carbon Dioxide 26 mmol/L (22-32); Calcium 9.2 mg/dL (8.6-10.3); Chloride 107 mmol/L (101-111); EGFR African American 74.9 (>60); EGFR Non-African American 61.9 (>60); Globulin 2.5 g/dL (2-4); Glucose 104 mg/dL (70-100); Magnesium 1.9 mg/dL (1.9-2.7); Sodium 139 mmol/L (135-145); Total Protein 6.8 g/dL (6.4-8.9)
[2018-12-04 22:16] LABS: Troponin I 0.02 ng/mL (<0.04)
[2018-12-04 22:34] LABS: TSH (Thyroid Stimulating Horm) 3.94 mcIU/mL (0.34-5.60)
--- NOTE | 2018-12-04 23:16 | ED ---
Dizziness - HPI Summary HPI Summary: 73-year-old male presents with his reporting onset of bilateral hand tremors around 8:00 this evening. States the tremor in his left hand subsided after about an hour but was still having some tremor of the right hand when he arrived in the ER this evening. States the tremor in the right hand subsided shortly after his arrival and he is not had any further episodes during the duration of his stay. Patient states that he has had been having several months of feeling weak, fatigued, and off balance. He was most recently seen in this facility on 11/13/2018 for these complaints. He is followed by neurology in [place] and has been undergoing evaluation for his symptoms. He also has known carotid artery disease and is followed by vascular surgery in [place] as well. Denies headache, visual disturbances, facial droop, slurred or difficulty speaking, dizziness, or vertigo, numbness, tingling, or weakness of his extremities, chest pain, palpitations, or shortness of breath. - History Of Current Complaint Chief Complaint: EDWeakness Stated Complaint: DIFFICULTY BREATHING/WEAKNESS PER PT Time Seen by Provider: 12/04/18 23:14 Hx Obtained From: Patient - Allergies/Home Medications Allergies/Adverse Reactions: Allergies Allergy/AdvReac Type Severity Reaction Status Date / Time ibuprofen Allergy Severe Hives Verified 12/04/18 21:08 Home Medications: Home Medications Rosuvastatin Calcium 1 tab PO DAILY 12/04/18 [History Confirmed 12/04/18] PMH/Surg Hx/FS Hx/Imm Hx Endocrine/Hematology History: Reports: Hx Anticoagulant Therapy, Hx Diabetes - type 2 Denies: Hx Thyroid Disease Cardiovascular History: Reports: Hx Coronary Artery Disease - CHOLESTEROL CONTROL WITH MEDS, Hx Hypercholesterolemia, Hx Hypertension - ON MEDS Denies: Hx Pacemaker/ICD Respiratory History: Denies: Hx Asthma, Hx Chronic Obstructive Pulmonary Disease (COPD) GI History: Reports: Hx Gastroesophageal Reflux Disease Denies: Other GI Disorders History: Denies: Hx Renal Disease Musculoskeletal History: Reports: Hx Arthritis, Hx Back Problems, Hx Tendonitis - LEFT SHOULDER, Other Musculoskeletal History - OSTEOARTHROSIS RIGHT SHOULDER, Sensory History: Reports: Hx Contacts or Glasses - READING GLASSES Denies: Hx Hearing Aid Opthamlomology History: Reports: Hx Contacts or Glasses - READING GLASSES Neurological History: Denies: Hx Dementia, Hx Seizures Psychiatric History: Denies: Hx Substance Abuse - Surgical History Surgery Procedure, Year, and Place: 1950 TONSILLECTOMY, [facility]. 1973 LEFT RETINAL DETATCHEMENT REPAIR, [facility] 1979 RIGHT INGUINAL HERNIA REPAIR, [place]. 1997 BACK FUSION, [facility]. 1999 RIGHT SHOULDER SURGERY , [facility] [place]; Left Shoulder Surgery 2012 [facility]. 2003 LEFT KNEE ARTHROSCOPIC SURGERY, [facility] [place]. 2006 BACK SURGERY, [facility]. 2010 DORSAL COLUMN STIMULATOR INSERTION,. 06/2012 LEFT KNEE TOTAL REPLACEMENT, [place]. RIGHT SHOULDER SURGERY REVISION 12/2013 Hx Anesthesia Reactions: No - DORSAL COLUMN STIMULATOR - Immunization History Date of Tetanus Vaccine: UTD Date of Influenza Vaccine: UTD Infectious Disease History: No Infectious Disease History: Denies: Hx Hepatitis, Hx Human Immunodeficiency Virus (HIV), Hx of Known/ Suspected MRSA, Traveled Outside the [place] in Last 30 Days - Family History Known Family History: Positive: Hypertension, Other - Negative malignant hyperthermia, negative anesthesia reaction - Social History Alcohol Use: None Hx Substance Use: No Substance Use Type: Reports: None Hx Tobacco Use: Yes Smoking Status (MU): Former Smoker Have You Smoked in the Last Year: No Review of Systems Positive: Fatigue. Negative: Fever, Chills, Skin Diaphoresis Negative: Photophobia, Blurred Vision, Diplopia Negative: Sore Throat, Ear Ache, Nasal Discharge Negative: Palpitations, Chest Pain Negative: Shortness Of Breath, Cough Negative: Abdominal Pain, Vomiting, Diarrhea, Nausea Genitourinary: Negative Positive: Other - Chronic back pain Negative: Rash Neurological: Other - Bilateral hand tremor Negative: Headache, Weakness, Paresthesia, Numbness, Syncope, Slurred Speech All Other Systems Reviewed And Are Negative: Yes Physical Exam - Summary Physical Exam Summary: GENERAL APPEARANCE: Alert and cooperative older adult male who appears to be in no acute distress. HEAD: Atraumatic. normocephalic. EYES: Conjunctiva clear. No drainage. PERRL, EOM intact. 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 EARS: External auditory canals and tympanic membranes clear, hearing grossly intact. NOSE: No nasal discharge. THROAT: Pharynx normal. No tonsilar inflammation, swelling, exudate, or lesions. Uvula midline. NECK: Neck supple, non-tender without lymphadenopathy. CARDIAC: Normal S1 and S2. No S3, S4 or murmurs. Rhythm is regular. Bradycardic. There is no peripheral edema, cyanosis or pallor. Extremities are warm and well perfused. Capillary refill is less than 2 seconds. Peripheral pulses intact. LUNGS: Clear to auscultation without rales, rhonchi, wheezing or diminished breath sounds. ABDOMEN: Positive bowel sounds. Soft, nondistended, nontender. No guarding or rebound. No masses or hepatosplenomegally. MUSKULOSKELETAL: ROM intact to all extremities. No joint erythema or tenderness. Normal muscular development. Unsteady gait. BACK: Examination of the spine reveals normal gait and posture, no spinal deformity or tenderness, decreased range of motion or muscular spasm. NEUROLOGICAL: CN II-XII intact. Strength and sensation symmetric and intact throughout. Reflexes 2+ throughout. SKIN: Skin normal color, texture and turgor with no lesions or eruptions. Triage Information Reviewed: Yes Vital Signs On Initial Exam: Initial Vitals Temp Pulse Resp BP Pulse Ox 97.7 F 51 16 177/78 99 12/04/18 21:03 12/04/18 21:03 12/04/18 21:03 12/04/18 21:03 12/04/18 21:03 Vital Signs Reviewed: Yes Diagnostics - Vital Signs Vital Signs Temp Pulse Resp BP Pulse Ox 12/04/18 21:03 97.7 F 51 16 177/78 99 - Laboratory Lab Results: Lab Results 12/04/18 12/04/18 12/04/18 Range/Units 21:50 21:50 21:50 WBC 6.7 (3.5-10.8) 10^3/uL RBC 4.78 (4.18-5.48) 10^6 /uL Hgb 15.0 (14.0-18.0) g/dL Hct 44 (36-46) % MCV 93 (80-94) fL MCH 31 (27-31) pg MCHC 34 (31-36) g/dL RDW 14 (10.5-15) % Plt Count 171 (150-450) 10^3/uL MPV 9.7 (7.4-10.4) fL Neut % (Auto) 60.1 % Lymph % (Auto) 25.8 % [place] % (Auto) 10.3 % Eos % (Auto) 2.9 % Baso % (Auto) 0.9 % Absolute Neuts (auto) 4.0 (1.5-7.7) 10^3/ul Absolute Lymphs (auto) 1.7 (1.0-4.8) 10^3/ul Absolute Monos (auto) 0.7 (0-0.8) 10^3/ul Absolute Eos (auto) 0.2 (0-0.6) 10^3/ul Absolute Basos (auto) 0.1 (0-0.2) 10^3/ul Absolute Nucleated RBC 0 10^3/ul Nucleated RBC % 0.1 INR (Anticoag Therapy) (0.77-1.02) Sodium 139 (135-145) mmol/L Potassium 4.0 (3.5-5.0) mmol/L Chloride 107 (101-111) mmol/L Carbon Dioxide 26 (22-32) mmol/L Anion Gap 6 (2-11) mmol/L BUN 23 (6-24) mg/dL Creatinine 1.16 (0.67-1.17) mg/dL Est GFR ( Amer) 74.9 (>60) Est GFR (Non-Af Amer) 61.9 (>60) BUN/Creatinine Ratio 19.8 (8-20) Glucose 104 H (70-100) mg/dL Lactic Acid 0.7 (0.5-2.0) mmol/L Calcium 9.2 (8.6-10.3) mg/dL Magnesium 1.9 (1.9-2.7) mg/dL Total Bilirubin 0.60 (0.2-1.0) mg/dL AST 21 (13-39) U/L ALT 21 (7-52) U/L Alkaline Phosphatase 72 (34-104) U/L Troponin I 0.02 (<0.04) ng/mL C-Reactive Protein < 1.00 (<8.01) mg/L B-Natriuretic Peptide (<=100) pg/mL Total Protein 6.8 (6.4-8.9) g/dL Albumin 4.3 (3.2-5.2) g/dL Globulin 2.5 (2-4) g/dL Albumin/Globulin Ratio 1.7 (1-3) TSH 3.94 (0.34-5.60) mcIU/mL 12/04/18 12/04/18 Range/Units 21:50 21:50 WBC (3.5-10.8) 10^3/uL RBC (4.18-5.48) 10^6 /uL Hgb (14.0-18.0) g/dL Hct (36-46) % MCV (80-94) fL MCH (27-31) pg MCHC (31-36) g/dL RDW (10.5-15) % Plt Count (150-450) 10^3/uL MPV (7.4-10.4) fL Neut % (Auto) % Lymph % (Auto) % [place] % (Auto) % Eos % (Auto) % Baso % (Auto) % Absolute Neuts (auto) (1.5-7.7) 10^3/ul Absolute Lymphs (auto) (1.0-4.8) 10^3/ul Absolute Monos (auto) (0-0.8) 10^3/ul Absolute Eos (auto) (0-0.6) 10^3/ul Absolute Basos (auto) (0-0.2) 10^3/ul Absolute Nucleated RBC 10^3/ul Nucleated RBC % INR (Anticoag Therapy) 0.92 (0.77-1.02) Sodium (135-145) mmol/L Potassium (3.5-5.0) mmol/L Chloride (101-111) mmol/L Carbon Dioxide (22-32) mmol/L Anion Gap (2-11) mmol/L BUN (6-24) mg/dL Creatinine (0.67-1.17) mg/dL Est GFR ( Amer) (>60) Est GFR (Non-Af Amer) (>60) BUN/Creatinine Ratio (8-20) Glucose (70-100) mg/dL Lactic Acid (0.5-2.0) mmol/L Calcium (8.6-10.3) mg/dL Magnesium (1.9-2.7) mg/dL Total Bilirubin (0.2-1.0) mg/dL AST (13-39) U/L ALT (7-52) U/L Alkaline Phosphatase (34-104) U/L Troponin I (<0.04) ng/mL C-Reactive Protein (<8.01) mg/L B-Natriuretic Peptide 122 H (<=100) pg/mL Total Protein (6.4-8.9) g/dL Albumin (3.2-5.2) g/dL Globulin (2-4) g/dL Albumin/Globulin Ratio (1-3) TSH (0.34-5.60) mcIU/mL Result Diagrams: 12/04/18 21:50 12/04/18 21:50 Lab Statement: Any lab studies that have been ordered have been reviewed, and results considered in the medical decision making process. - EKG No standard instances Cardiac Rate: Bradycardia - Rate 58 ST Segment: Normal Ectopy: PVCs EKG Comparison: No Significant Change Dizzy Course/Dx - Course Course Of Treatment: 73-year-old male presents with his reporting onset of bilateral hand tremors around 8:00 this evening. States the tremor in his left hand subsided after about an hour but was still having some tremor of the right hand when he arrived in the ER this evening. States the tremor in the right hand subsided shortly after his arrival and he is not had any further episodes during the duration of his stay. Patient states that he has had been having several months of feeling weak, fatigued, and off balance. He was most recently seen in this facility on 11/13/2018 for these complaints. He is followed by neurology in [place] and has been undergoing evaluation for his symptoms. He also has known carotid artery disease and is followed by vascular surgery in [place] as well. Denies headache, visual disturbances, facial droop, slurred or difficulty speaking, dizziness, or vertigo, numbness, tingling , or weakness of his extremities, chest pain, palpitations, or shortness of breath. Afebrile. He is hypertensive otherwise vital signs are stable. Exam revealed an alert and oriented older adult male in no acute distress. He was neurologically intact and no tremors were noted. He was noted to have a slightly unsteady gait. His lab work was essentially normal with a mildly elevated BNP of 122. EKG showed a sinus bradycardia at a rate of 58, prolonged TX interval, multiple PVCs, with no significant changes when compared to his previous EKG from his visit on 11/13/2018. Considering that he is already being followed closely by neurology and his symptoms have resolved by the time of his examination do not feel that any further testing is warranted at this time. I am recommending that he have close follow-up with his primary care provider and that he contact his neurologist to notify them regarding his most recent symptoms. Anticipatory guidance and warning symptoms reviewed with the patient. Verbalizes understanding and agrees plan of care. - Diagnoses Differential Diagnosis/HQI/PQRI: Benign Paroxysmal Positional Vertigo, CVA, Dysrhythmia, Transient Ischemic Attack, Other - Disequilibrium, Carotid stenosis Provider Diagnoses: Tremor of both hands, Ataxia, Fatigue Discharge - Sign-Out/Discharge Documenting (check all that apply): Patient Departure Patient Received Moderate/Deep Sedation with Procedure: No - Discharge Plan Condition: Stable Disposition: HOME Patient Education Materials: Tremors (ED) Referrals: Ledy Gallardo MD [Primary Care Provider] - 3 Days (Call Friday.) Additional Instructions: The new symptom of hand tremors had resolved by the time of your exam. I do not have a good explanation for these symptoms at this time. Your lab work was essentially normal and the EKG showed no acute changes. It will be very important that you keep your upcoming appointments with neurology, cardiology, and vascular surgery to further evaluate your symptoms. Follow up with your primary care provider in 3 days. I would call first thing Friday to schedule an appointment. Return to the emergency room if you develop severe headache, visual disturbances , facial droop, slurred speech, numbness, tingling, or weakness of your arms and legs especially on one side of your body, chest pain, shortness of breath, or any worsening of symptoms. - Billing Disposition and Condition Condition: STABLE Disposition: Home
[2018-12-05 00:27] VITALS: BP 145/95
== END 2018-12-05 00:36 | disposition home or self-care (01) ==
LOC: ED 20:57
DX: R25.1 Tremor, unspecified (principal); R27.0 Ataxia, unspecified; R53.83 Other fatigue; R06.02 Shortness of breath; R53.1 Weakness; I25.10 Atherosclerotic heart disease of native coronary artery without angina pectoris; Z87.891 Personal history of nicotine dependence
CPT/HCPCS: 36415; 80053; 83605; 83735; 83880; 84443; 84484; 85025; 85610; 86140; 93005; 96360; 99283

== ENCOUNTER 2019-11-05 20:57 | Emergency (ER) | payer MEDICARE, OTHER ==
[2019-11-05 21:03] VITALS: BP 153/74
--- OUTSIDE RECORDS SUMMARY | 2019-11-05 21:09 | XMS REPORT | Continuity of Care Document ---
:1945 External Reference #:[id number] Author Name Ledy Montaño MD Address [address] [place] [id number] Care Team Providers Name Role Phone Shiva Rodriguez MD - Orthopaedic Surgery Care Team Information Manager Mail [phone] Jesús Hill MD Care Team Information Manager Mail [phone] Landon Engle MD - Gastroenterology Care Team Information Manager Mail [phone] Problems Active Problems Provider Date Mixed hyperlipidemia Matthew Nielson MD Onset: 12/31/2010 Low back pain Matthew Nielson MD Onset: 12/31/2010 Paroxysmal supraventricular tachycardia Matthew Nielson MD Onset: 2010 Benign essential hypertension Matthew Nielson MD Onset: 12/31/2010 Impaired fasting glycaemia Olivia Olvera MD Onset: 12/28/2013 Obesity Olivia Olvera MD Onset: 12/28/2013 Impairment level: one eye: profound Olivia Olvera MD Onset: 12/28/2013 impairment: other eye: not specified Degenerative joint disease involving multiple Olivia Olvera MD Onset: 12/28 joints 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 Lower esophageal ring Olivia Olvera MD Onset: 09/25/2014 Hearing loss Olivia Olvera MD Onset: 09/29/2014 Essential hypertension Olivia Olvera MD Onset: 09/28/2015 Type II diabetes mellitus uncontrolled Ledy Montaño MD Onset: 2016 Social History Type Date Description Comments Sex Unknown Tobacco Use Start: Unknown End: Former Cigar Smoker 3 Daily X 10 yrs Unknown Tobacco Use Start: Unknown End: Quit - Age 59 Unknown Smoking Status Reviewed: 09/28/19 Quit - Age 59 ETOH Use Rarely consumes beer Tobacco Use Start: Unknown End: Patient is a former smoker Unknown Exercise Limitations Back Pain Allergies, Adverse Reactions, Alerts Active Allergies Reaction Severity Comments Date Motrin Rash 07/15/2005 Medications Active Medications SIG Qnty Indications Ordering Date Provider Tramadol HCL take one tablet 20tabs M54.5 [facility] 09/28/2019 50mg by mouth three MD Alessia Tablets times a day as needed pain Aspirin Ec 1 by mouth every [facility] 03/01/2019 81mg Tablets day MD DR Albina Aggarwal 2 shot series 2units Z00.01 [facility] 02/22/2019 50mcg/0.5ML MD Alessia Suspension Rec Rosuvastatin Calcium Take One Tablet 30tabs I65.23 [facility] 2018 By Mouth Every MD Alessia 10mg Tablets Day Onetouch Verio Flex for fsbg's two 1units E11.65 [facility] 2016 Bloodglucose times a day dx: MD Alessia Monitoring System dm 2 w/Device Kit Onetouch Ultrasoft (verio) test 100units E11.65 [facility] 2016 Lancets blolod sugar MD Alessia Misc twice daily as directed and as needed Onetouch Verio Mid with test strips 100units E11.65 [facility] 01/28 Control Solution for bid testing MD Alessia Solution Onetouch Verio for fsbg's twice 100units E11.65 [facility] 2016 Strips a day MD Alessia Synjardy Take One Tablet 60tabs E11.65 [facility] 12/24/2016 5-500mg By Mouth Twice A Alessia, Tablets Day Vitamin D 1 by mouth every E55.9 [facility] 12/12/2016 2000Unit day MD Alessia Tablets Gabapentin 1 by mouth twice 60caps M54.5 [facility] 12/10/2016 300mg a day 2 every MD Alessia Capsules night at bedtime prn Acetaminophen 2 qid M54.5 Olivia Olvera, 03/29/2015 500mg Tablets Metoprolol Tartrate take one tablet 180tabs I10 [facility] 2010 by mouth twice a M, 25mg Tablets day I47.1 Omeprazole 1 by mouth bid 60caps Q39.4 Ledy Montaño MD 40mg Capsules DR Fatumas CPT Code Status Date Vaccine Reaction Lot # [id number] Given 06/25/2019 Influenza Vac, [id number] Quadrivalent, Split, 0.5mL Dosage, Im Use 71877 Given 08/31/2018 Influenza Vac, [id number] Quadrivalent, Split, 0.5mL Dosage, Im Use 38827 Given 12/29/2017 Tdap (Adacel) Ages 7 And [id number] Above Only 28006 Given 07/11/2017 Influenza Vac, [id number] Quadrivalent, Split, 0.5mL Dosage, Im Use 97891 Given 06/29/2014 Prevnar 13 Pneumococal [id number] Conjugate Vaccine Q2038 Given 06/29/2014 Fluzone Trivalent [id number] Immunization Q2038 Given 06/28/2013 Fluzone Trivalent [id number] Immunization Q2038 Given 07/08/2011 Fluzone Trivalent [id number] Immunization 67837 Given 06/25/2010 Afluria Or Fluvirin Flu Vac [id number] Intramuscular 84040 Given 12/25/2009 Shingles Vaccine [id number] 35483 Given 12/25/2009 Zoster (Zostavax) 80658 Given 05/20/2008 Zoster (Zostavax) [id number] 32910 Given 01/15/2008 Tetanus And Diptheria REC [place] [facility] [place] [id number] Toxoid 7 Years And Older 01/15/08 PER PATIENT-CT Preserv Free 12043 Given 06/22/2007 Afluria Or Fluvirin Flu Vac [id number] Intramuscular 04492 Given 08/18/2006 Afluria Or Fluvirin Flu Vac [id number] Intramuscular 15268 Given 07/15/2005 Afluria Or Fluvirin Flu Vac [id number] Intramuscular 87094 Given 01/11/2004 Immunization Td 7 Yrs Or Older 64361 Given 07/13/2003 Afluria Or Fluvirin Flu Vac Intramuscular 59553 Given 08/25/2002 Afluria Or Fluvirin Flu Vac Intramuscular 77977 Given 08/05/2001 Afluria Or Fluvirin Flu Vac Intramuscular 58455 Refused 12/10/2016 Influenza Vac, Quadrivalent, Split, 0.5mL Dosage, Im Use Vital Signs Date Vital Result Comment 09/28/2019 8:11am Weight 235.00 lb Heart Rate 56 /min BP Systolic 128 mmHg BP Diastolic 74 mmHg Height 78 inches 6'6" BMI (Body Mass Index) 27.2 kg/m2 06/25/2019 8:30am Weight 232.00 lb Heart Rate 56 /min BP Systolic 118 mmHg BP Diastolic 62 mmHg Results Test Acquired Date Facility Test Result H/L Range Note Laboratory test 09/28/2019 [facility] Hemoglobin A1c <pending> finding Laboratory test 09/28/2019 [facility] Vit D 25Oh <pending> finding TSH <pending> Microalb/Creat Panel 06/25/2019 [facility] Creatinine, Urine 130.4 mg/dL 1 Microalb/Creat Urine 36.88 ug/mgCreat High 0.00-30.00 Microalbumin 48.1 ug/ml High 0.0-20.0 Laboratory test finding 06/25/2019 Nas Vitamin D 25 Hydroxy 66 ng/mL 30-100 2 Iron Panel 06/25/2019 [facility] Iron, Total 88 g/dL 65-175 Transferrin 344.0 mg/dL 203.0-362.0 Tibc (calc) 482 g/dL High 261-478 % Iron Saturation 18.3 % 13.0-45.0 CBC with Auto Diff-fcmg 06/25/2019 Nas WBC 7.8 K/uL 4.1-11.0 RBC 4.59 M/uL Low 4.60-6.10 Hemoglobin 13.4 gm/dL Low 13.5-18.0 Hematocrit 40.9 % Low 41.0-53.0 MCV 89.2 fL 80.0-97.0 MCH 29.2 pg 27.0-32.0 MCHC 32.7 g/dL 32.0-36.0 RDW 17.2 % High 11.5-14.5 PLT Count 187 K/ul 140-400 MPV 10.0 FL 7.1-10.7 Neutrophil 64.8 % 35.0-75.0 Lymphocyte 20.3 % 16.0-52.0 Monocyte 11.8 % High 2.0-10.0 Eosinophil 1.9 % 0.0-5.0 Basophil 1.2 % 0.0-4.0 Abs Neutrophils 5.0 K/uL 2.1-8.0 Abs Lymphocytes 1.6 K/uL 0.8-5.5 Abs Monocytes 0.9 K/uL 0.1-1.0 Abs Eosinophils 0.2 K/uL 0.0-0.5 Abs Basophils 0.1 K/uL 0.0-0.3 Basic (BMP) 06/15/2019 [facility] Sodium 141 mmol/L 135-146 3 Potassium 4.6 mmol/L 3.5-5.2 Chloride# 105 mmol/L 97-110 4 Carbon Dioxide 30 mmol/L 24-34 Glucose 106 mg/dL High 70-105 BUN 21 mg/dL 6-26 Creatinine 1.1 mg/dL 0.5-1.4 Calcium 9.0 mg/dL 8.5-10.5 5 Female Egfr 53 Low >60 6 Male Egfr 70 >60 7 Anion Gap 6 mmol/L 5-15 8 CBC with Auto Diff-fcmg 06/15/2019 [facility] WBC 6.3 K/uL 4.1-11.0 RBC 4.23 M/uL Low 4.60-6.10 Hemoglobin 12.4 gm/dL Low 13.5-18.0 Hematocrit 37.8 % Low 41.0-53.0 MCV 89.2 fL 80.0-97.0 MCH 29.4 pg 27.0-32.0 MCHC 32.9 g/dL 32.0-36.0 RDW 17.3 % High 11.5-14.5 PLT Count 161 K/ul 140-400 MPV 10.1 FL 7.1-10.7 Neutrophil 64.9 % 35.0-75.0 Lymphocyte 21.1 % 16.0-52.0 Monocyte 10.1 % High 2.0-10.0 Eosinophil 2.8 % 0.0-5.0 Basophil 1.1 % 0.0-4.0 Abs Neutrophils 4.1 K/uL 2.1-8.0 Abs Lymphocytes 1.3 K/uL 0.8-5.5 Abs Monocytes 0.6 K/uL 0.1-1.0 Abs Eosinophils 0.2 K/uL 0.0-0.5 Abs Basophils 0.1 K/uL 0.0-0.3 Iron Panel 06/15/2019 [facility] Iron, Total 54 g/dL Low 65-175 Transferrin 305.0 mg/dL 203.0-362.0 Tibc (calc) 427 g/dL 261-478 % Iron Saturation 12.6 % Low 13.0-45.0 Lipid 06/15/2019 [facility] Cholesterol 73 mg/dL 50-199 Triglycerides 88 mg/dL 30-200 HDL 28 mg/dL Low 29-71 9 Chol/ HDL Ratio 2.6 ratio Low 4.0-6.7 VLDL 18 mg/dL 2-29 LDL (Calc) 27 mg/dL 20-99 10 Laboratory test finding 06/15/2019 [facility] 17 U/L 8-42 Alt 17 U/L 3-42 Hemoglobin A1c 06/15/2019 [facility] Hemoglobin A1c 6.5 % High 4.1-5.9 Estimated Average Glucose Calc 140 mg/dL 71-140 Inr/Protime 05/08/2019 [facility] Inr 0.94 Normal 0.82-1.09 11 Laboratory test 05/08/2019 [facility] Rapid Strep A Negative Negative 12 finding Molecular 1 This sample is drawn by:NB. 2 Clinical Guidelines for recommended serum 25(OH)Vitamin D Deficient at less than 20 ng/mL Insufficient at 20 to <30 ng/mL Sufficient at 30-100 ng/mL Toxicity at greater than 100 ng/mL 3 Updated reference range on new analyzer 4 Updated reference range on new analyzer 5 Updated reference range 01-13-2019 6 Concerning GFR Guidelines for Americans: Normal function or mild renal disease, if clinically at risk: >/= 60 mL/min Moderately decreased: 30-59 Severely decreased: 15-29 Renal failure: <15 There is reduced accuracy above 60ml/min/1.73 m squared, but the numeric value may be clinically useful in the near 60 range 7 Concerning GFR Guidelines: Normal function or mild renal disease, if clinically at risk: >/= 60 mL/min Moderately decreased: 30-59 Severely decreased: 15-29 Renal failure: <15 There is reduced accuracy above 60ml/min/1.73 m squared, but the numeric value may be clinically useful in the near 60 range Glomerular Filtration Rate (GFR) is estimated based on the CKD-EPI equation, which assumes a steady state for creatinine as recommended by the National Kidney Disease Education Program in conjunction with the National Institutes of Health and the National Kidney Foundation. Clinical conditions in which it may be necessary to measure GFR by using clearance methods include extremes of age and body size, severe malnutrition or obesity, diseases of skeletal muscle, paraplegia or quadriplegia, vegetarian diet, rapidly changing kidney function, and calculation of the dose of potentially toxic drugs that are excreted by the kidneys. 8 Updated Reference Range -2017 9 Per NCEP ATP III Guidelines: Results lower than 40 mg/dL are suggestive of increased risk for coronary artery disease. Results > or = to 60 mg/dL are considered a negative risk factor. 10 Per NCEP ATP III Guidelines: Normal Population <130 Patients with medical conditions: CHD/DM Optimal: <100 Borderline high: 130-159 High: 160-189 Very high: >189 11 Standard intensity warfarin therapeutic range: 2.0-3.0 High intensity warfarin therapeutic range: 2.5-3.5 12 Middleware Administrator: [id number] Procedures Date Code Description Status 09/09/2014 96752136 Colonoscopy Completed 04/15/2014 11928510 Colonoscopy Completed 04/15/2011 [id number] Colonoscopy Completed Medical Devices Description No Information Available Encounters Type Date Location Provider Dx Diagnosis Office Visit 06/25/2019 Ledy Mascorro I49.49 Other premature 8:leonard Aggarwal MD depolarization E11.65 Type 2 diabetes mellitus with hyperglycemia D50.9 Iron deficiency anemia, unspecified E78.2 Mixed hyperlipidemia I49.3 Ventricular premature depolarization I65.23 Occlusion and stenosis of bilateral carotid arteries E55.9 Vitamin D deficiency, unspecified I25.10 Athscl heart disease of [place] coronary artery w/o ang pctrs Z23 Encounter for immunization Z95.5 Presence of coronary angioplasty implant and graft Assessments Date Code Description Provider 09/28/2019 E11.65 Type 2 diabetes mellitus with hyperglycemia Ledy Montaño MD 09/28/2019 I47.1 Supraventricular tachycardia Ledy Montaño MD 09/28/2019 I71.4 Abdominal aortic aneurysm, without rupture Ledy Montaño MD 09/28/2019 E55.9 Vitamin D deficiency, unspecified Ledy Montaño MD 09/28/2019 E78.2 Mixed hyperlipidemia Ledy Montaño MD 09/28/2019 D50.9 Iron deficiency anemia, unspecified Ledy Montaño MD 09/28/2019 I49.3 Ventricular premature depolarization Ledy Montaño MD 09/28/2019 I65.23 Occlusion and stenosis of bilateral carotid Ledy Montaño MD arteries 09/28/2019 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 09/28/2019 R53.83 Other fatigue Ledy Montaño MD 09/28/2019 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 Ledy Montaño MD 09/28/2019 M54.5 Low back pain Ledy Montaño MD 09/28/2019 Z68.27 Body mass index (BMI) 27.0-27.9, adult Ledy Montaño MD 06/25/2019 I49.49 Other premature depolarization Ledy Montaño MD 06/25/2019 E11.65 Type 2 diabetes mellitus with hyperglycemia Ledy Montaño MD 06/25/2019 E55.9 Vitamin D deficiency, unspecified [facility] 06/25/2019 D50.9 Iron deficiency anemia, unspecified Ledy Montaño MD 06/25/2019 E78.2 Mixed hyperlipidemia Ledy Montaño MD 06/25/2019 I49.3 Ventricular premature depolarization Ledy Montaño MD 06/25/2019 I65.23 Occlusion and stenosis of bilateral carotid Ledy Montaño MD arteries 06/25/2019 E55.9 Vitamin D deficiency, unspecified Ledy Montaño MD 06/25/2019 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 06/25/2019 Z23 Encounter for immunization Ledy Montaño MD 06/25/2019 Z95.5 Presence of coronary angioplasty implant and Ledy Montaño MD graft 06/25/2019 D50.9 Iron deficiency anemia, unspecified [facility] 06/25/2019 E11.65 Type 2 diabetes mellitus with hyperglycemia [facility] 06/15/2019 R73.01 Impaired fasting glucose [facility] 06/15/2019 I47.1 Supraventricular tachycardia Ledy Montaño MD 06/15/2019 I47.1 Supraventricular tachycardia [facility] 06/15/2019 E78.2 Mixed hyperlipidemia [facility] 06/15/2019 I49.49 Other premature depolarization [facility] 06/15/2019 I47.1 Supraventricular tachycardia Nurs[facility] Schedule [facility] 06/15/2019 I49.49 Other premature depolarization Ledy Montaño MD 06/15/2019 I49.49 Other premature depolarization Nurses Schedule [facility] 06/15/2019 I47.1 Supraventricular tachycardia [facility] 06/15/2019 I49.49 Other premature depolarization [facility] Plan of Treatment 09/28/2019 - Ledy Montaño MDE11.65 Type 2 diabetes mellitus with hyperglycemiaFollow up:3 mosI47.1 Supraventricular zcihsxpiawcP02.4 Abdominal aortic aneurysm, without jqbvotcV32.9 Vitamin D deficiency, ehxbkhlbcbrK61.2 Mixed dzknjdhnwpuvfxH60.9 Iron deficiency anemia, bazhbarjiktI72.3 Ventricular premature uaxhfqmhjrwxplL73.23 Occlusion and stenosis of bilateral carotid ckqvyjddY28.10 Atherosclerotic heart disease of [place] coronary artery without angina pyrgxwtjG18.83 Other tbqblrpP98.4 Esophageal webM54.5 Low back painNew Medication:Tramadol HCL 50 mg - take one tablet by mouth three times a day as needed painReferral:Chandler Warner MD,Z68.27 Body mass index (BMI) 27.0-27.9, adult Functional Status Description No Information Available Mental Status Description No Information Available Referrals Refer to Reason for Referral Status Appt Date Chandler Warner MD Created [address] Darlene Malik [id number] [phone]
--- OUTSIDE RECORDS SUMMARY | 2019-11-05 21:09 | XMS REPORT | Continuity of Care Document ---
:1945 External Reference #:[id number] Author Name Deejay Lincoln M.D. (transmitted by agent of provider Park Fleming ) Address [address], [place] [address] Care Team Providers Name Role Phone Gudelia Irby MD - Physical Care Team Information Nutrition Aides Teacher [phone] Medicine & Rehabilitation Ledy Montaño MD - Internal Care Team Information Nutrition Aides Teacher Medicine Problems Active Problems Provider Date Elevated blood-pressure reading without Shiva Rodriguez M.D. Onset: 03/15/2015 diagnosis of hypertension Palpitations Shiva Rodriguez M.D. Onset: 03/15/2015 Chronic back pain Shiva Rodriguez M.D. Onset: 03/15/2015 Abnormal gait Deejay Lincoln M.D. Onset: 03/01/2019 Low back pain Deejay Lincoln M.D. Onset: 03/01/2019 Carotid artery occlusion Deejay Lincoln M.D. Onset: 03/01/2019 Polyneuropathy Deejay Lincoln M.D. Onset: 09/24/2019 Vertebral artery occlusion Deejay Lincoln M.D. Onset: 04/19/2019 Social History Type Date Description Comments Sex Unknown Tobacco Use Start: Unknown Never Smoked Cigarettes Smoking Status Reviewed: 09/24/19 Never Smoked Cigarettes ETOH Use Never used alcohol Tobacco Use Start: Unknown Patient has never smoked Recreational Drug Use Denies Drug Use Exercise Type/Frequency Does not exercise Allergies, Adverse Reactions, Alerts Active Allergies Reaction Severity Comments Date Motrin 10/28/2013 Medications Active Medications SIG Qnty Indications Ordering Date Provider Amoxicillin 4 tablets 1 12caps Shiva Rodriguez M.D. 03/15/2015 500mg Capsules hour before dental work Metoprolol Succinate ER 2 tabs a day po Unknown 25mg Omeprazole 1 twice a by Unknown 40mg Capsules DR mouth every day Aspirin 1 a day Unknown 81mg Tablets DR Tylenol Extra Strength 1-2 tabs by Unknown 500mg mouth every 6 Tablets hours as needed Vitamin D-1000 Maximum 2 Unknown Strength capsule/tablet 1000Unit Tablets daily by mouth Cyclobenzaprine HCL 1 by mouth at Unknown 5mg bedtime as Tablets needed for back pain Synjardy 1 by mouth Unknown 5-500mg Tablets twice a day Rosuvastatin Calcium take 1 tablet Unknown 10mg by mouth every Tablets evening Medications Administered in Office Medication SIG Qnty Indications Ordering Provider Date Depomedrol 40MG Shiva Rodriguez M.D. 07/05/2019 Injection Depomedrol 40MG Jelena Couch RPA-C 07/20/2018 Injection Depomedrol 40MG Shiva Rodriguez M.D. 07/19/2016 Injection Depomedrol 40MG Shiva Rodriguez M.D. 07/19/2016 Injection Depomedrol 40MG Charley Richard RPA-C 08/02/2015 Injection Depomedrol 80MG Charley Richard RPA-C 03/15/2015 Injection Depomedrol 80MG Lyudmila Chan M.D. 10/28/2013 Injection Depomedrol 80MG Lyudmila Chan M.D. 10/07/2013 Injection Depomedrol 80MG Shiva Rodriguez M.D. 12/18/2011 Injection Immunizations Description No Information Available Vital Signs Date Vital Result Comment 09/24/2019 10:22am Height 79 inches 6'7" Weight 231.00 lb Heart Rate 54 /min BP Systolic 120 mmHg BP Diastolic 79 mmHg BMI (Body Mass Index) 26.0 kg/m2 07/05/2019 10:29am Height 79 inches 6'7" Weight 235.00 lb Heart Rate 54 /min BP Systolic 138 mmHg BP Diastolic 60 mmHg Respiratory Rate 16 /min Body Temperature 96.8 F Pain Level 10 BMI (Body Mass Index) 26.5 kg/m2 Results Description No Information Available Procedures Date Code Description Status 07/05/2019 29090 Inject/Drain Joint/Bursa Major W/O US Completed Medical Devices Description No Information Available Encounters Type Date Location Provider Dx Diagnosis Office Visit 09/24/2019 [facility] Deejay Lincoln, G62.9 Polyneuropathy, 10:15a [facility] [address] [employer] unspecified R26.81 Unsteadiness on feet M54.5 Low back pain Office Visit 07/05/2019 Lonny Rodriguez, M17.12 Unilateral primary 10:15a [facility], left [place] knee Z96.652 Presence of left artificial knee joint Office Visit 04/19/2019 [facility] Deejay Lincoln R26.81 Unsteadiness on 12:00p [facility]rolog[facility] [address] M54.5 Low back pain I65.01 Occlusion and stenosis of right vertebral artery I65.23 Occlusion and stenosis of bilateral carotid arteries Assessments Date Code Description Provider 09/24/2019 G62.9 Polyneuropathy, unspecified Deejay Lincoln M.D. 09/24/2019 R26.81 Unsteadiness on feet Deejay Lincoln M.D. 09/24/2019 M54.5 Low back pain Deejay Lincoln M.D. 07/05/2019 M17.12 Unilateral primary osteoarthritis, left Shiva Rodriguez M.D. knee 07/05/2019 Z96.652 Presence of left artificial knee joint Shiva Rodriguez M.D. 04/19/2019 R26.81 Unsteadiness on feet Deejay Lincoln M.D. 04/19/2019 M54.5 Low back pain Deejay Lincoln M.D. 04/19/2019 I65.01 Occlusion and stenosis of right vertebral Deejay Lincoln M.D. artery 04/19/2019 I65.23 Occlusion and stenosis of bilateral carotid Deejay Lincoln M.D. arteries Plan of Treatment Future Appointment(s):01/28/2020 4:00 pm - Deejay Lincoln M.D. at [facility] [address]09/24/2019 - Deejay Lincoln M.D.G62.9 Polyneuropathy, unspecifiedNew Therapy:Physical TherapyFollow up:Follow up in 4 months [facility] for records from RvfpoaffwC62.81 Unsteadiness on feetM54.5 Low back pain Functional Status Description No Information Available Mental Status Description No Information Available Referrals Description No Information Available
--- NOTE | 2019-11-05 21:14 | ED ---
Head Injury - HPI Summary HPI Summary: This patient is a 74 year old male presenting to [facility] with a chief complaint of injury to the head after the fall yesterday. The patient states he was walking on compacted snow when he fell and his head contacted a building. He states he feels pain and bruising to the right ear and pain around his right eye , with no other complaints. States he was mostly concerned about the bruising to the ear. - History Of Current Complaint Chief Complaint: EDHeadInjury Stated Complaint: RT EAR PROBLEM PER PT Time Seen by Provider: 11/05/19 21:07 Hx Obtained From: Patient Onset of Pain: Days Pain Intensity: 3 Pain Scale Used: 0-10 Numeric - Allergies/Home Medications Allergies/Adverse Reactions: Allergies Allergy/AdvReac Type Severity Reaction Status Date / Time ibuprofen Allergy Severe Hives Verified 11/05/19 20:59 Home Medications: Home Medications Metoprolol Tartrate TAB* [Lopressor TAB*] 25 mg PO BID 11/07/16 [History Confirmed 11/03/19] Empagliflozin/Metformin HCl [Synjardy 5-500 mg Tablet] 1 tab PO BID 05/18/17 [ History Confirmed 11/03/19] Cholecalciferol TAB* [Vitamin D TAB*] 2,000 units PO DAILY 11/14/18 [History Confirmed 11/03/19] Rosuvastatin Calcium 10 mg PO DAILY 12/04/18 [History Confirmed 11/03/19] Aspirin 81 mg CHEW TAB* 81 mg PO DAILY 05/08/19 [History Confirmed 11/03/19] Acetaminophen [Acetaminophen Extra Strength] 1,000 mg PO DAILY 11/03/19 [ History Confirmed 11/03/19] Cyclobenzaprine (NF) [Cyclobenzaprine 5 MG (NF)] 5 mg PO TID PRN 11/03/19 [ History Confirmed 11/03/19] Gabapentin CAP(*) [Neurontin 300 CAP(*)] 300 mg PO TID 11/03/19 [History Confirmed 11/03/19] Hydrocodone/Acetaminophen [Hydrocodone-Acetamin 5-325 mg] 0.5 - 1 tab PO BID PRN MDD 2 11/03/19 [History Confirmed 11/03/19] Omeprazole 40 mg PO BID 11/03/19 [History Confirmed 11/03/19] PMH/Surg Hx/FS Hx/Imm Hx Endocrine/Hematology History: Reports: Hx Anticoagulant Therapy, Hx Diabetes - type 2 Denies: Hx Thyroid Disease Cardiovascular History: Reports: Hx Coronary Artery Disease - CHOLESTEROL CONTROL WITH MEDS, Hx Hypercholesterolemia, Hx Hypertension - ON MEDS, Other Cardiovascular Problems/Disorders - Aneurysm Denies: Hx Pacemaker/ICD Respiratory History: Reports: Hx Sleep Apnea Denies: Hx Asthma, Hx Chronic Obstructive Pulmonary Disease (COPD) GI History: Reports: Hx Gastroesophageal Reflux Disease, Hx Ulcer Denies: Other GI Disorders History: Denies: Hx Renal Disease Musculoskeletal History: Reports: Hx Arthritis, Hx Back Problems, Hx Tendonitis - LEFT SHOULDER, Other Musculoskeletal History - OSTEOARTHROSIS RIGHT SHOULDER, CERVICAL PAIN Sensory History: Reports: Hx Contacts or Glasses - READING GLASSES Denies: Hx Hearing Aid Opthamlomology History: Reports: Hx Contacts or Glasses - READING GLASSES Neurological History: Denies: Hx Dementia, Hx Seizures Psychiatric History: Denies: Hx Substance Abuse - Surgical History Surgery Procedure, Year, and Place: 1949 TONSILLECTOMY, [facility]. 1973 LEFT RETINAL DETATCHEMENT REPAIR, [facility]. 1979 RIGHT INGUINAL HERNIA REPAIR, [place]. 1997 BACK FUSION, [facility]. 1999 RIGHT SHOULDER SURGERY , [facility] [place]; Left Shoulder Surgery 2012 [facility]. 2003 LEFT KNEE ARTHROSCOPIC SURGERY, [facility] [place]. 2006 BACK SURGERY, [place]. 2010 DORSAL COLUMN STIMULATOR INSERTION,. 06/2012 LEFT KNEE TOTAL REPLACEMENT, [place]. RIGHT SHOULDER SURGERY REVISION 12/2013 Hx Anesthesia Reactions: No - DORSAL COLUMN STIMULATOR - Immunization History Date of Tetanus Vaccine: UTD Date of Influenza Vaccine: UTD Infectious Disease History: No Infectious Disease History: Denies: Hx Hepatitis, Hx Human Immunodeficiency Virus (HIV), Hx of Known/ Suspected MRSA, Traveled Outside the [place] in Last 30 Days - Family History Known Family History: Positive: Hypertension, Other - Negative malignant hyperthermia, negative anesthesia reaction - Social History Alcohol Use: None Hx Substance Use: No Substance Use Type: Reports: None Hx Tobacco Use: Yes Smoking Status (MU): Former Smoker Have You Smoked in the Last Year: No Review of Systems Positive: Other - Pain around right eye Positive: Bruising - Right ear All Other Systems Reviewed And Are Negative: Yes Physical Exam - Summary Physical Exam Summary: Appearance: Well-appearing, Well-nourished, lying in bed comfortable Skin: Warm, dry, no obvious rash Eyes: sclera anicteric, no conjunctival pallor ENT: mucous membranes moist. Right ear diffusely echymotic but no significant swelling or hematoma formation. Neck: deferred Respiratory: No signs of respiratory distress Cardiovascular: Appears well perfused, pulses are nml Abdomen: deferred Musculoskeletal: Moving all 4 extremities without obvious discomfort Neurological: Awake and alert, mentation is normal, speech is fluent and appropriate Psychiatric: affect is normal, does not appear anxious or depressed Triage Information Reviewed: Yes Vital Signs On Initial Exam: Initial Vitals Temp Pulse Resp BP Pulse Ox 97.2 F 61 18 153/74 98 11/05/19 20:59 11/05/19 20:59 11/05/19 20:59 11/05/19 20:59 11/05/19 20:59 Vital Signs Reviewed: Yes Procedures - Sedation Patient Received Moderate/Deep Sedation with Procedure: No Diagnostics - Vital Signs Vital Signs Temp Pulse Resp BP Pulse Ox 11/05/19 20:59 97.2 F 61 18 153/74 98 - Laboratory Lab Statement: Any lab studies that have been ordered have been reviewed, and results considered in the medical decision making process. Head Injury Course/Dx Course Of Treatment: This patient is a 74 year old male presenting to [facility] with a chief complaint of injury to the head after the fall yesterday. The patient states he was walking on compacted snow when he fell and his head contacted a building. He states he feels pain and bruising to the right ear and pain around his right eye, with no other complaints. Physical exam reveals Right ear diffusely echymotic but no significant swelling or hematoma formation. Plan for discharge was discussed with the patient and he understands and agrees with the plan. - Diagnoses Provider Diagnoses: Ecchymosis Discharge ED - Sign-Out/Discharge Documenting (check all that apply): Patient Departure - Discharge - Discharge Plan Condition: Stable Disposition: HOME Patient Education Materials: Ecchymosis (ED) Referrals: Ledy Gallardo MD [Primary Care Provider] - - Billing Disposition and Condition Condition: STABLE Disposition: Home - Attestation Statements Document Initiated by Scribe: Yes Documenting Scribe: Tyrese Haile Provider For Whom Irajibe is Documenting (Include Credential): Landon Calderón MD Scribe Attestation: Tyrese Maradiaga, scribed for Landon Calderón MD on 11/06/19 at 2016. Scribe Documentation Reviewed: Yes Provider Attestation: The documentation as recorded by the scribe, Tyrese Haile accurately reflects the service I personally performed and the decisions made by me, Landon Calderón MD Status of Scribe Document: Viewed
== END 2019-11-05 21:17 | disposition home or self-care (01) ==
LOC: ED 20:57
DX: S05.11XA Contusion of eyeball and orbital tissues, right eye, initial encounter (principal); W18.09XA Striking against other object with subsequent fall, initial encounter; Y93.01 Activity, walking, marching and hiking; Y92.9 Unspecified place or not applicable; E11.9 Type 2 diabetes mellitus without complications; Z79.84 Long term (current) use of oral hypoglycemic drugs; I25.10 Atherosclerotic heart disease of native coronary artery without angina pectoris; I10 Essential (primary) hypertension; E78.00 Pure hypercholesterolemia, unspecified; K21.9 Gastro-esophageal reflux disease without esophagitis; Z79.82 Long term (current) use of aspirin; Z96.652 Presence of left artificial knee joint; Z88.6 Allergy status to analgesic agent; Z87.891 Personal history of nicotine dependence
CPT/HCPCS: 99281

== ENCOUNTER 2020-11-28 12:53 | Inpatient (IN) ==
[~2020-11-28 12:53] MED LIST: Buffered Lidocaine 1% SYRIN 1 ml INTRADERM ONE; Dexamethasone IV 4 MG/ML VIAL 1 ml VIAL IV SLOW PU ONE; Lactated Ringers 1000 ml BAG 1,000 ML IV SCH
[2020-11-28] MEDS ORDERED: Ketamine HCL 50 mg/ml 10 ml VIAL (500 MG) ONE (13:03)
[2020-11-28] MEDS ORDERED: fentaNYL 100 mcg/2 ml 50 MCG/ML VIAL ONE ×2 (13:03→18:19)
[2020-11-28] MEDS ORDERED: Midazolam 2 mg/2 ml VIAL 1 mg/ml 2 ml VIAL (2 mg) ONE (13:03)
[2020-11-28] MEDS ORDERED: Dexamethasone IV 4 MG/ML VIAL 1 ml VIAL ONE ×2 (13:09→13:30)
[2020-11-28] MEDS ORDERED: Ondansetron 4 mg VIAL 2 MG/ML 2 ml VIAL ONE ×2 (13:09→18:34)
[2020-11-28] MEDS ORDERED: ceFAZolin 2 GM PREMIX 2 GM/50 ML BAG ONE (13:30)
[2020-11-28] MEDS ORDERED: Rocuronium 50 mg VIAL 10 mg/ml 5 ml VIAL (50 mg) ONE (15:09)
[2020-11-28] MEDS ORDERED: ROPIVACAINE 5 MG/ML 30 ML BTL (0.5%) ONE (15:10)
[2020-11-28] MEDS ORDERED: Sevoflurane BOTTLE ONE (15:40)
[2020-11-28] MEDS ORDERED: Ondansetron 4 mg VIAL 2 MG/ML 2 ml VIAL IV PRN ×2 (15:42→16:19)
[2020-11-28] MEDS ORDERED: Naloxone 0.4 mg VIAL 0.4 mg/ml 1 ml VIAL IV PRN (15:42)
[2020-11-28] MEDS ORDERED: HYDROmorphone 1 MG/1 ML SYRINGE ONE ×2 (15:59→17:52)
[2020-11-28] MEDS ORDERED: Glycopyrrolate IV 0.2 MG/ML 1 ML VIAL ONE ×2 (16:18)
[2020-11-28] MEDS ORDERED: Lactulose 30 ml UDC PO PRN (16:19)
[2020-11-28] MEDS ORDERED: Magnesium Hydroxide LIQ 30 ML UDC PO PRN (16:19)
[2020-11-28] MEDS ORDERED: diPHENhydraMINE 25 mg TAB PO PRN (16:19)
[2020-11-28] MEDS ORDERED: Morphine 2 MG/ML SYRINGE IV PRN (16:19)
[2020-11-28] MEDS ORDERED: diPHENhydraMINE IV 50 MG/ML 1 ml VIAL (BENADRYL) IV PRN (16:19)
[2020-11-28] MEDS ORDERED: Ondansetron ODT 4 mg TAB 4 MG TAB PO PRN (16:19)
[2020-11-28] MEDS ORDERED: EPHEDrine (Pressors) 50 MG/ML VIAL ONE (16:56)
[2020-11-28] MEDS: HYDROmorphone 1 MG/1 ML SYRINGE IV PRN ×5 (18:00→18:36)
[2020-11-28] MEDS: fentaNYL 100 mcg/2 ml 50 MCG/ML VIAL IV PRN ×3 (18:21→18:41)
[2020-11-28] MEDS: Lactated Ringers 1000 ml BAG 1,000 ML IV SCH (19:53)
[2020-11-28] MEDS: Magnesium Hydroxide LIQ 30 ML UDC PO SCH (19:54)
[2020-11-28] MEDS: METFORMIN PO SCH (22:37)
[2020-11-28] MEDS: EMPAGLIFLOZIN PO SCH (22:37)
[2020-11-28] MEDS: ceFAZolin 1 GM ADVAN 1 GM in NS 0.9% 50 ML 50 ML IVPB SCH (23:54)
[2020-11-29 07:00] LABS: Calcium 8.8 mg/dL (8.6-10.3); Potassium 4.2 mmol/L (3.5-5.0)
[2020-11-29 07:04] LABS: Hematocrit 29 % (42-52); Hemoglobin 9.2 g/dL (14.0-18.0); Mean Platelet Volume 8.7 fL (7.4-10.4); Platelet Count 177 10^3/uL (150-450)
[2020-11-29 07:05] LABS: BUN/Creatinine Ratio 20.4 (8-20); EGFR Non-African American 70.6 (>60)
[2020-11-29 07:06] LABS: EGFR African American 85.4 (>60)
[2020-11-29] MEDS: Lactated Ringers 1000 ml BAG 1,000 ML IV SCH ×2 (07:43→08:24)
[2020-11-29] MEDS: Magnesium Hydroxide LIQ 30 ML UDC PO SCH ×2 (08:22→23:12)
[2020-11-29] MEDS: Vitamin THERAPEUTIC TAB PO SCH (08:22)
[2020-11-29] MEDS: ceFAZolin 1 GM ADVAN 1 GM in NS 0.9% 50 ML 50 ML IVPB SCH ×2 (08:25→16:30)
[2020-11-29] MEDS: METFORMIN PO SCH (09:12)
[2020-11-29] MEDS: EMPAGLIFLOZIN PO SCH (09:12)
[2020-11-29] MEDS ORDERED: Prochlorperazine 5 mg/ml 2 ml VIAL (10 mg) IV PRN (17:48)
[2020-11-29] MEDS ORDERED: Piperacillin/Tazobac ADVAN 3.375 GM in NS 0.9% 100 ml BAG 100 ML IV ONE (19:35)
[2020-11-29] MEDS ORDERED: NS 0.9% 1000 ml BAG 1,000 ML IV ONE (19:47)
[2020-11-29] MEDS ORDERED: Zosyn per Pharmacy NOTE FOLLOW UP SCH (20:00)
[2020-11-29 20:31] LABS: ABS Lymphocytes 0.3 10^3/ul (1.0-4.8); ABS Monocytes 0.5 10^3/ul (0-0.8); ABS Neutrophils 5.4 10^3/ul (1.5-7.7); Eosinophil % 0.4 %; Hematocrit 28 % (42-52); Lymphocyte % 4.1 %; Mean Corpuscular HGB Conc 32 g/dL (31-36); Mean Corpuscular Hemoglobin 26 pg (27-31); Mean Corpuscular Volume 82 fL (80-94); Mean Platelet Volume 8.7 fL (7.4-10.4); Platelet Count 165 10^3/uL (150-450); Red Blood Count 3.45 10^6 /uL (4.18-5.48); Red Cell Distribution Width 18 % (10-15); White Blood Count 6.2 10^3/uL (3.5-10.8)
[2020-11-29 20:37] LABS: Albumin 3.8 g/dL (3.2-5.2); Albumin/Globulin Ratio 1.6 (1-3); BUN/Creatinine Ratio 20.9 (8-20); Calcium 8.7 mg/dL (8.6-10.3); EGFR African American 75.2 (>60); EGFR Non-African American 62.2 (>60); Globulin 2.4 g/dL (2-4); Potassium 4.2 mmol/L (3.5-5.0); Total Protein 6.2 g/dL (6.4-8.9)
[2020-11-29] MEDS ORDERED: NS 0.9% 1000 ml BAG 1,000 ML IV SCH (23:15)
[2020-11-30] MEDS: ZOSYN 3.375 GM Q8H per EXTENDED INFUSION IV SCH ×2 (01:35→09:52)
[2020-11-30 05:48] LABS: Urine Appearance Clear; Urine Bilirubin Negative (Negative); Urine Blood 2+ (Negative); Urine Color Yellow; Urine Glucose 3+(>=500 mg/dL) (Negative); Urine Ketones Trace (Negative); Urine Nitrite Negative (Negative); Urine Protein Negative (Negative); Urine Urobilinogen Negative (Negative)
[2020-11-30 05:48] LABS: Urine Appearance Cloudy; Urine Bilirubin Negative (Negative); Urine Blood 1+ (Negative); Urine Color Yellow; Urine Glucose 3+(>=500 mg/dL) (Negative); Urine Ketones Trace (Negative); Urine Nitrite Negative (Negative); Urine Protein 1+(30 mg/dL) (Negative); Urine Specific Gravity 1.024 (1.010-1.030); Urine Urobilinogen Negative (Negative)
[2020-11-30 05:52] LABS: Urine Bacteria Absent (Absent); Urine Red Blood Cell Trace(0-2/hpf) (Absent); Urine Squamous Epithelial Cell Present (Absent); Urine White Blood Cell Trace(0-5/hpf) (Absent)
[2020-11-30 05:52] LABS: Urine Bacteria Absent (Absent); Urine Red Blood Cell Trace(0-2/hpf) (Absent); Urine Squamous Epithelial Cell Present (Absent); Urine White Blood Cell Trace(0-5/hpf) (Absent)
[2020-11-30] MEDS: Vitamin THERAPEUTIC TAB PO SCH (08:40)
[2020-11-30] MEDS: Magnesium Hydroxide LIQ 30 ML UDC PO SCH ×2 (08:40→22:43)
[2020-11-30] MEDS ORDERED: Enoxaparin 40 MG/0.4 ML SYR SUBCUT SCH (09:00)
[2020-11-30] MEDS: Enoxaparin 40 MG/0.4 ML SYR SUBCUT SCH (23:01)
[2020-12-01 05:46] LABS: ABS Basophils 0.1 10^3/ul (0-0.2); ABS Eosinophils 0.3 10^3/ul (0-0.6); ABS Lymphocytes 0.8 10^3/ul (1.0-4.8); ABS Monocytes 0.9 10^3/ul (0-0.8); ABS Neutrophils 5.4 10^3/ul (1.5-7.7); Eosinophil % 4.4 %; Hematocrit 24 % (42-52); Hemoglobin 7.6 g/dL (14.0-18.0); Lymphocyte % 11.1 %; Mean Corpuscular HGB Conc 32 g/dL (31-36); Mean Corpuscular Hemoglobin 26 pg (27-31); Mean Corpuscular Volume 82 fL (80-94); Mean Platelet Volume 8.1 fL (7.4-10.4); Platelet Count 149 10^3/uL (150-450); Red Blood Count 2.88 10^6 /uL (4.18-5.48); Red Cell Distribution Width 18 % (10-15); White Blood Count 7.5 10^3/uL (3.5-10.8)
[2020-12-01 06:04] LABS: BUN/Creatinine Ratio 15.9 (8-20); Calcium 8.3 mg/dL (8.6-10.3); EGFR African American 81.7 (>60); EGFR Non-African American 67.6 (>60); Potassium 4.1 mmol/L (3.5-5.0)
[2020-12-01] MEDS ORDERED: Enoxaparin 40 MG/0.4 ML SYR SUBCUT SCH (09:00)
[2020-12-01] MEDS: Magnesium Hydroxide LIQ 30 ML UDC PO SCH ×2 (09:04→21:19)
[2020-12-01] MEDS: Aspirin EC 81 mg TAB.EC (enteric coated) PO SCH (09:05)
[2020-12-01] MEDS: Vitamin THERAPEUTIC TAB PO SCH (09:05)
[2020-12-01 18:55] LABS: Hematocrit 23 % (42-52); Hemoglobin 7.5 g/dL (14.0-18.0)
[2020-12-01] MEDS: Enoxaparin 40 MG/0.4 ML SYR SUBCUT SCH (21:19)
[2020-12-02 02:52] LABS: Hematocrit 28 % (42-52)
[2020-12-02 04:30] LABS: Hematocrit 27 % (42-52); Hemoglobin 8.8 g/dL (14.0-18.0); Mean Platelet Volume 8.4 fL (7.4-10.4); Platelet Count 160 10^3/uL (150-450)
[2020-12-02] MEDS: Aspirin EC 81 mg TAB.EC (enteric coated) PO SCH (08:16)
[2020-12-02] MEDS: Magnesium Hydroxide LIQ 30 ML UDC PO SCH ×2 (08:16→19:47)
[2020-12-02] MEDS: Vitamin THERAPEUTIC TAB PO SCH (08:18)
[2020-12-02 16:42] LABS: Hematocrit 27 % (42-52); Mean Corpuscular HGB Conc 33 g/dL (31-36); Mean Corpuscular Hemoglobin 27 pg (27-31); Mean Corpuscular Volume 82 fL (80-94); Mean Platelet Volume 8.5 fL (7.4-10.4); Platelet Count 191 10^3/uL (150-450); Red Blood Count 3.33 10^6 /uL (4.18-5.48); Red Cell Distribution Width 18 % (10-15); White Blood Count 7.5 10^3/uL (3.5-10.8)
[2020-12-02 17:36] LABS: Urine Appearance Cloudy; Urine Bilirubin Negative (Negative); Urine Blood 3+ (Negative); Urine Color Yellow; Urine Glucose 3+(>=500 mg/dL) (Negative); Urine Ketones Negative (Negative); Urine Nitrite Negative (Negative); Urine Protein 2+(100 mg/dL) (Negative); Urine Specific Gravity 1.022 (1.010-1.030); Urine Urobilinogen Positive (Negative)
[2020-12-02 17:38] LABS: Urine Bacteria Absent (Absent); Urine Red Blood Cell 3+(>10/hpf) (Absent); Urine White Blood Cell 1+(6-10/hpf) (Absent)
[2020-12-02] MEDS: Enoxaparin 40 MG/0.4 ML SYR SUBCUT SCH (19:48)
[2020-12-03 04:35] LABS: Hematocrit 28 % (42-52); Hemoglobin 8.9 g/dL (14.0-18.0); Mean Platelet Volume 8.2 fL (7.4-10.4); Platelet Count 220 10^3/uL (150-450)
[2020-12-03] MEDS ORDERED: Senna TAB 8.6 mg TAB PO ONE (09:00)
[2020-12-03] MEDS: Vitamin THERAPEUTIC TAB PO SCH (09:33)
[2020-12-03] MEDS: Aspirin EC 81 mg TAB.EC (enteric coated) PO SCH (09:36)
[2020-12-03] MEDS: Magnesium Hydroxide LIQ 30 ML UDC PO SCH ×2 (09:37→19:27)
[2020-12-03] MEDS: Enoxaparin 40 MG/0.4 ML SYR SUBCUT SCH (19:23)
[2020-12-04 08:43] LABS: Hematocrit 31 % (42-52)
[2020-12-04] MEDS: Aspirin EC 81 mg TAB.EC (enteric coated) PO SCH (09:42)
[2020-12-04] MEDS: Vitamin THERAPEUTIC TAB PO SCH (09:42)
[2020-12-04] MEDS: Magnesium Hydroxide LIQ 30 ML UDC PO SCH (09:42)
[2020-12-04 11:11] VITALS: BP 141/57
== END 2020-12-04 12:03 | DRG 470 ==
LOC: INTOOBSV 12:53 → AA 12:53 → OBSVTOIN 12:53 → SSU 16:19
PROVIDERS: ADMIT Orthopaedic Surgery Adult Reconstructive Orthopaedic Surgery; ATTEND Orthopaedic Surgery Adult Reconstructive Orthopaedic Surgery

== ENCOUNTER 2023-12-06 20:14 | Observation (INO) ==
[2023-12-06 21:23] LABS: ABS Basophils 0.1 10^3/uL (0.0-0.1); ABS Eosinophils 0.3 10^3/uL (0.0-0.5); ABS Lymphocytes 1.6 10^3/uL (1.0-4.8); ABS Monocytes 0.6 10^3/uL (0.0-1.1); ABS Neutrophils 4.3 10^3/uL (1.5-7.6); ABS Nucleated RBC 0.01 10^3/ul; Eosinophil % 3.7 %; Hematocrit 46.8 % (38-53); Hemoglobin 15.9 g/dL (13.2-16.3); Lymphocyte % 23.4 %; Mean Corpuscular Hemoglobin 32.7 pg (27-33); Mean Corpuscular Hgb Conc 33.9 g/dL (31-36); Mean Corpuscular Volume 96.5 fL (80-97); Mean Platelet Volume 9.8 fL (7.5-11.2); Nucleated Red Blood Cells % 0.1 %/100WBC (0.0-0.8); Platelet Count 193 10^3/uL (150-450); Red Blood Count 4.85 10^6/uL (4.06-5.63); Red Cell Distribution Width 15.8 % (12-17); White Blood Count 6.9 10^3/uL (3.6-10.2)
[2023-12-06 21:27] LABS: Activated Partial Thrombo Time 30.1 seconds (26.0-38.0); INR 0.91 (0.83-1.13)
[2023-12-06] MEDS: Iodixanol (CONTRAST) 320 MG/ML 100 ML SDV IV ONE (21:38)
[2023-12-06 22:27] LABS: Albumin/Globulin Ratio 1.8 (1-3); Calcium 10.2 mg/dL (8.6-10.3); Creatinine, Serum 1.11 mg/dL (0.67-1.17); Direct Bilirubin 0.1 mg/dL (0.03-0.18); Globulin 2.8 g/dL (2-4); Indirect Bilirubin 0.6 mg/dL (0.3-1.0); Potassium 4.3 mmol/L (3.5-5.0); Total Bilirubin 0.7 mg/dL (0.2-1.0); Total Protein 7.8 g/dL (6.4-8.9); eGFR CKD-EPI 68.4 (>60)
[2023-12-07 03:13] LABS: Urine Appearance Clear; Urine Bilirubin Negative (Negative); Urine Blood Negative (Negative); Urine Color Light-Yellow; Urine Glucose 4+ (>=1000 mg/dL) (Negative); Urine Ketones Negative (Negative); Urine Nitrite Negative (Negative); Urine Protein Trace (Negative); Urine Specific Gravity 1.047 (1.002-1.030); Urine Urobilinogen Negative (Negative); Urine pH 6.5 (5.0-8.0)
[2023-12-07 06:33] LABS: ABS Basophils 0.1 10^3/uL (0.0-0.1); ABS Eosinophils 0.2 10^3/uL (0.0-0.5); ABS Lymphocytes 1.4 10^3/uL (1.0-4.8); ABS Monocytes 0.6 10^3/uL (0.0-1.1); ABS Neutrophils 5.1 10^3/uL (1.5-7.6); Eosinophil % 2.7 %; Hematocrit 43.3 % (38-53); Hemoglobin 14.7 g/dL (13.2-16.3); Lymphocyte % 19.2 %; Mean Corpuscular Hemoglobin 32.6 pg (27-33); Mean Corpuscular Hgb Conc 33.8 g/dL (31-36); Mean Corpuscular Volume 96.3 fL (80-97); Mean Platelet Volume 9.7 fL (7.5-11.2); Platelet Count 159 10^3/uL (150-450); Red Cell Distribution Width 15.1 % (12-17); White Blood Count 7.4 10^3/uL (3.6-10.2)
[2023-12-07 06:54] LABS: Calcium 9.1 mg/dL (8.6-10.3); Creatinine, Serum 0.9 mg/dL (0.67-1.17); Magnesium 1.9 mg/dL (1.9-2.7)
[2023-12-07] MEDS ORDERED: Dextrose 50% Syringe 50 ml 25 GM/50 ML SYRINGE IV PUSH PRN (07:05)
[2023-12-07] MEDS: Cholecalciferol (VIT D3) 1,000 unit TAB PO SCH (08:44)
[2023-12-07 14:05] VITALS: BP 140/74
== END 2023-12-07 18:25 | disposition short-term general hospital (02) ==
LOC: EDHOLD 20:14 → ED 20:14 → MEDTELE 12-07 02:42
PROVIDERS: ADMIT Student in an Organized Health Care Education/Training Program; ATTEND Hospitalist